=== PATIENT | male | born 1980 | race Caucasian/White ===

== ENCOUNTER → 2019-11-03 15:48 | Outpatient (CLI) | payer MEDICARE, MEDICAID, SELFPAY ==
[2019-10-27 09:35] VITALS: BMI 36.2
--- NOTE | 2019-11-03 15:52 | MRI_ITS ---
STUDY: MRI BRAIN WITH AND WITHOUT CONTRAST REASON FOR EXAM: Male, 39 years old. epilepsy H/O OF SEIZURE 1 TIME 10/15/19 TECHNIQUE: Standardized multiplanar fat and water weighted pulse sequences were obtained. IV 21 cc dotarem was administered for the contrast portion of the examination. COMPARISON: None. FINDINGS: Normal size of the ventricles and extra-axial spaces for the patient''s age. Normal white matter tracts of the supratentorial brain. There is no evidence for recent intracranial ischemia or other cause of cytotoxic edema on diffusion weighted imaging (DWI). Dandy-Walker malformation. Normal bilateral basal ganglia. Normal thalami. There is no extra-axial fluid accumulation. Normal flow voids within the major intracranial circulation suggesting patency by spin echo criteria. Normal venous enhancement. There is no enhancing intra-axial or extra-axial abnormality. There is enlargement of the sella turcica with increased CSF within the sella and flattening of the pituitary gland consistent with an empty sellar syndrome. Normal infundibular stalk, hypothalamus, and optic chiasm. Normal tectal plate and pineal gland. Normal midbrain, beryl and medulla. There is a retrocerebellar CSF fluid collection, without a mass effect upon the vermis, with an open fourth ventricle (widely patent foramen Magendie), consistent with the mildest form of a Dandy-Walker variant, with a alexys-cisterna magna. There is no enlargement of the posterior fossa. Normal basal cisterns. Normal bilateral temporal bones. Normal bilateral internal auditory canals. No demonstrated orbital abnormality, within the constraints of a routine brain study. Normal visualized paranasal sinuses. Normal calvarium and skull base. Normal visualized soft tissue structures. Normal visualized upper cervical spine. IMPRESSION: No acute disease. Dandy-Walker variant. Empty sella. Electronically Signed: Myles Kidd MD at 18:46 EDT , Service support , MRI/Brain W/WO Contrast
== END ==
PROVIDERS: PCP Family Medicine; Referring Provider Psychiatry & Neurology Neurology; Visit Provider Psychiatry & Neurology Neurology
DX: G40.909 Epilepsy, unspecified, not intractable, without status epilepticus (principal)
CPT/HCPCS: 70553; A9575

== ENCOUNTER → 2021-03-25 11:45 | Outpatient (CLI) | payer MEDICARE, MEDICAID, SELFPAY ==
--- NOTE | 2021-03-25 11:50 | ECHOD_ITS ---
Version 2 Reason For Study: congenital heart disease Procedure This was a 2D Doppler, Color Flow transthoracic echocardiogram. The study was technically difficult. Exam performed in department. Left Ventricle Normal LV size. Mild concentric left ventricular hypertrophy. Left ventricular systolic function is normal. The estimated ejection fraction is 60 %. Stage 1 diastolic dysfunction. No regional wall motion abnormalities noted. Right Ventricle Normal RV size. Normal systolic function. Atria Normal left atrium. Flow seen coming into the left atrium from across the atrial septum. This is presumably from the right upper pulmonary vein. Normal right atrium. Mitral Valve Normal mitral valve. Tricuspid Valve Normal tricuspid valve. Aortic Valve Trisinus/trileaflet aortic valve. Pulmonic Valve Normal pulmonic valve. Great Vessels Normal aortic root. The pulmonary artery is normal size. Pericardium/Pleural No pericardial effusion. MMode/2D Measurements & Calculations LVIDd: 2.8 cm IVSd: 1.6 cm Ao root diam: 3.1 cm LVIDs: 1.5 cm LVPWd: 1.2 cm RVDd: 3.3 cm FS: 46.5 % LAV(MOD-bp): 33.3 ml LVAd ap4: 25.0 cm2 SV(MOD-sp4): 44.0 ml LAV(MOD-bp) Indexed: 14.7 ml/m2 LVLd ap4: 7.5 cm LAV(MOD-sp2): 20.6 ml EDV(MOD-sp4): 69.5 ml LAV(MOD-sp4): 51.4 ml EDV(sp4-el): 71.0 ml LVAs ap4: 13.6 cm2 LVLs ap4: 6.3 cm ESV(MOD-sp4): 25.5 ml ESV(sp4-el): 24.9 ml EF(MOD-sp4): 63.3 % EF(sp4-el): 64.9 % SV(sp4-el): 46.1 ml LA A4 area: 17.0 cm2 LA dimension(2D): 3.8 cm RA A4 area: 13.8 cm2 Doppler Measurements & Calculations MV E max mason: 57.1 cm/sec Lat Peak E' Mason: 6.7 cm/sec Med Peak E' Mason: 6.4 cm/sec MV A max mason: 80.1 cm/sec E/E' lat: 8.6 E/E' med: 8.9 MV E/A: 0.71 Ao V2 max: 122.2 cm/sec LV V1 max: 96.9 cm/sec PA V2 max: 124.0 cm/sec Ao max P.0 mmHg LV V1 max P.8 mmHg ECHO/Echo Complete Interpretation Summary Normal LV size. Left ventricular systolic function is normal. The estimated ejection fraction is 60 %. Stage 1 diastolic dysfunction. Mild concentric left ventricular hypertrophy. Flow seen coming into the left atrium from across the atrial septum. This is pr esumably from the right upper pulmonary vein Ordering Physician: Franklin Stallings Referring Physician: Lisa Seo Performed By: Madelyn Bullock RDCS
== END ==
PROVIDERS: PCP Physician Assistant Medical; Referring Provider Internal Medicine Cardiovascular Disease; Visit Provider Internal Medicine Cardiovascular Disease
DX: G47.33 Obstructive sleep apnea (adult) (pediatric) (principal)
CPT/HCPCS: 93306

== ENCOUNTER → 2021-06-20 11:49 | Outpatient (CLI) | payer MEDICARE, MEDICAID, SELFPAY ==
[2021-06-20 12:14] LABS: Bacteria 0 SEEN /hpf (None Seen); Mucous, Urine 0 SEEN /hpf (<or=2+); Red Blood Cells-Urine 0 SEEN /hpf (0-5); Squamous Epithelial Cells - UA 0 SEEN /hpf (0-5)
[2021-06-20 15:04] LABS: Color, Urine Yellow (Yellow); Glucose, Dipstick Normal (Normal); Hematocrit 42.8 % (40-54); Ketone-Dipstick Negative (Negative); Leukocyte Esterase-Dipstick 25 /ul (Negative); Mean Corp Hgb Conc 32.7 g/dL (32-36); Mean Corpuscular Hgb 28.3 pg (27.0-32.0); Mean Corpuscular Volume 86.5 fL (80-94); Mean Platelet Vol. 9.7 fl (6.2-12.0); Nitrite-Dipstick Negative (Negative); Occult Blood-Urine Negative /ul (Negative); Platelet Count 300 K/mm3 (150-450); Protein-Dipstick 15 mg/dl (Negative); RBC Distribution Width CV 13.2 % (11.6-14.6); RBC Distribution Width SD 40.9 fl (35.1-43.9); Red Blood Count 4.95 M/mm3 (4.6-6.2); Specific Gravity, Urine 1.015 (1.002-1.030); Urine Bilirubin Dipstick Negative (Negative); Urine Clarity Clear (Clear); Urine Urobilinogen Normal (Normal); White Blood Count 14.8 K/mm3 (4.4-11.0)
[2021-06-20 15:10] LABS: White Blood Cells 0-5 SEEN /hpf (0-5)
[2021-06-20 15:20] LABS: ALB/GLOB Ratio 0.9 RATIO (0.9-2.4); AST(SGOT) 27 U/L (15-37); Alanine Aminotransfer ALT/SGPT 37 U/L (16-61); Albumin, Serum 3.5 g/dL (3.2-5.0); Alkaline Phosphatase 84 U/L (45-117); Anion Gap 9 (5-15); BUN 12 mg/dL (7-18); BUN/Creat Ratio 13.8 RATIO (10-20); Chloride 108 mmol/L (98-107); Creatinine, Serum 0.87 mg/dL (0.70-1.30); EST Glomerular Filtration Rate 103 mL/min (>60); Est Glom Filt Rate - Afr Amer 125 mL/min (>60); Globulin 3.7 g/dL (2.2-4.2); Glucose 92 mg/dL (74-106); Potassium 4.3 mmol/L (3.5-5.1); Protein, Total 7.2 g/dL (6.4-8.2); Sodium Level 143 mmol/L (136-145)
[2021-06-20 15:35] LABS: Valproic Acid (Depakene) Level 51 ug/mL (50-100)
== END ==
PROVIDERS: PCP Physician Assistant Medical; Referring Provider Nurse Practitioner Family; Visit Provider Nurse Practitioner Family
DX: R56.9 Unspecified convulsions (principal); R46.89 Other symptoms and signs involving appearance and behavior
CPT/HCPCS: 80053; 80164; 81001; 82140; 85027; 87086

== ENCOUNTER → 2021-11-18 | Outpatient (CLI) | payer MEDICARE, MEDICAID, SELFPAY | END | disposition home or self-care (01) | LOC: MTLAB 09:39 | PROVIDERS: PCP Physician Assistant Medical; Referring Provider Psychiatry & Neurology Neurology; Visit Provider Psychiatry & Neurology Neurology | DX: E72.20 Disorder of urea cycle metabolism, unspecified (principal) | CPT/HCPCS: 36415; 82140 ==

== ENCOUNTER → 2022-02-25 | Outpatient (CLI) | payer MEDICARE, MEDICAID, SELFPAY | END | disposition home or self-care (01) | LOC: MTLAB 14:48 | PROVIDERS: PCP Physician Assistant Medical; Referring Provider Psychiatry & Neurology Neurology; Visit Provider Psychiatry & Neurology Neurology | DX: E72.20 Disorder of urea cycle metabolism, unspecified (principal) | CPT/HCPCS: 36415; 82140 ==

== ENCOUNTER → 2022-07-18 | Outpatient (CLI) | payer MEDICARE, MEDICAID, SELFPAY ==
[2022-07-21 12:43] LABS: Vitamin D 1,25-Dihydroxy 53.1 pg/mL (24.8-81.5)
== END | disposition home or self-care (01) ==
LOC: MTLAB 09:19
PROVIDERS: PCP Physician Assistant Medical; Referring Provider Psychiatry & Neurology Neurology; Visit Provider Psychiatry & Neurology Neurology
DX: E72.20 Disorder of urea cycle metabolism, unspecified (principal); Z86.39 Personal history of other endocrine, nutritional and metabolic disease
CPT/HCPCS: 36415; 82140; 82652

== ENCOUNTER → 2022-09-08 | Outpatient (CLI) | payer MEDICARE, MEDICAID, SELFPAY | END | disposition home or self-care (01) | LOC: SL 21:06 | PROVIDERS: PCP Physician Assistant Medical; Referring Provider Nurse Practitioner Acute Care; Visit Provider Nurse Practitioner Acute Care | DX: G47.33 Obstructive sleep apnea (adult) (pediatric) (principal) | CPT/HCPCS: 95811 ==

== ENCOUNTER → 2022-10-03 | Outpatient (CLI) | payer MEDICARE, MEDICAID, SELFPAY | END | disposition home or self-care (01) | LOC: SL 13:08 | PROVIDERS: PCP Physician Assistant Medical; Visit Provider Nurse Practitioner Acute Care | DX: Z00.00 Encounter for general adult medical examination without abnormal findings (principal) ==

== ENCOUNTER → 2022-11-13 | Outpatient (CLI) | payer MEDICARE, MEDICAID, SELFPAY | END | disposition home or self-care (01) | LOC: MTLAB 15:16 | PROVIDERS: PCP Physician Assistant Medical; Referring Provider Psychiatry & Neurology Neurology; Visit Provider Psychiatry & Neurology Neurology | DX: E72.20 Disorder of urea cycle metabolism, unspecified (principal) | CPT/HCPCS: 36415; 82140 ==

== ENCOUNTER → 2023-02-13 | Outpatient (CLI) | payer MEDICARE, MEDICAID, SELFPAY | END | disposition home or self-care (01) | PROVIDERS: PCP Physician Assistant Medical; Referring Provider Psychiatry & Neurology Neurology; Visit Provider Psychiatry & Neurology Neurology | DX: E72.20 Disorder of urea cycle metabolism, unspecified (principal) | CPT/HCPCS: 36415; 82140 ==

== ENCOUNTER → 2023-03-03 | Outpatient (CLI) | payer MEDICARE, MEDICAID, SELFPAY ==
[2023-03-03 10:13] LABS: Absolute Lymphocyte Count 1.96 X10^3/uL (0.83-4.51); Absolute Neutrophil Count 9.1 X10^3/uL (2.0-7.7); Basophil% 0.8 % (0-1); Eosinophil# 0.27 X10^3/uL; Eosinophils% 2.2 % (0-5); Hematocrit 47.9 % (40-54); Hemoglobin 16.1 g/dL (13.0-16.5); Lymphocyte # 1.96 X10^3/ul (0.83-4.51); Mean Corp Hgb Conc 33.6 g/dL (32-36); Mean Corpuscular Hgb 29.1 pg (27.0-32.0); Mean Corpuscular Volume 86.6 fL (80-94); Monocyte# 0.74 X10^3/uL; Monocyte% 6.1 % (0-10); NRBC Flagged by Analyzer 0 % (0-5); Neutrophil # 9.11 X10^3/uL (2.7-7.7); Neutrophil % 74.6 % (47-70); POSITIVE COUNT YES; Platelet Count 204 K/mm3 (150-450); RBC Distribution Width CV 13.1 % (11.6-14.6); RBC Distribution Width SD 40.7 fl (35.1-43.9); Red Blood Count 5.53 M/mm3 (4.6-6.2); White Blood Count 12.2 K/mm3 (4.4-11.0)
[2023-03-03 10:24] LABS: Differential Indicated SCAN CRITERIA MET
[2023-03-03 10:42] LABS: ALB/GLOB Ratio 0.9 RATIO (0.9-2.4); AST(SGOT) 22 U/L (15-37); Alanine Aminotransfer ALT/SGPT 39 U/L (16-61); Albumin, Serum 3.6 g/dL (3.2-5.0); Alkaline Phosphatase 106 U/L (45-117); Anion Gap 7 (5-15); BUN 10 mg/dL (7-18); Chloride 109 mmol/L (98-107); Creatinine, Serum 1.11 mg/dL (0.70-1.30); EST Glomerular Filtration Rate 77 mL/min (>60); Est Glom Filt Rate - Afr Amer 94 mL/min (>60); Glucose 100 mg/dL (74-106); Magnesium 2.3 mg/dL (1.6-2.6); Potassium 3.8 mmol/L (3.5-5.1); Protein, Total 7.6 g/dL (6.4-8.2); Sodium Level 140 mmol/L (136-145); Thyroid Stim Hormone (TSH) 3.75 uIU/mL (0.358-3.74)
[2023-03-03 10:50] LABS: Differential Comment SCANNED
[2023-03-03 14:21] LABS: Erythrocyte Sedimentation Rate 22 mm/hr (0-20)
== END | disposition home or self-care (01) ==
LOC: MTLAB 08:48
PROVIDERS: PCP Physician Assistant Medical; Referring Provider Psychiatry & Neurology Neurology; Visit Provider Psychiatry & Neurology Neurology
DX: E72.20 Disorder of urea cycle metabolism, unspecified (principal); R19.7 Diarrhea, unspecified; R45.1 Restlessness and agitation
CPT/HCPCS: 80053; 82140; 83735; 84443; 85025; 85652; 86140

== ENCOUNTER → 2023-03-12 | Outpatient (CLI) | payer MEDICARE, MEDICAID, SELFPAY ==
--- NOTE | 2023-03-12 13:03 | MRI_ITS ---
STUDY: MRI BRAIN WITHOUT CONTRAST REASON FOR EXAM: Male, 42 years old. Lethargy, recent hearing loss, Dandy-Walker malformation TECHNIQUE: Multiplanar multisequence imaging of the brain was performed without the administration of intravenous contrast. COMPARISON: 11/03/2019 FINDINGS: The ventricles, cisterns, and sulci are within normal limits for patients age. There is no restricted diffusion to suggest acute ischemia or infarction. No succeptibility artifict to suggest intracranial hemorrhage or mineralization. Major intracranial signal voids are preserved. There is no midline shift, mass effect, or extra axial fluid collections are seen. Stable Dandy-Walker variant. The orbits are unremarkable. Stable empty sella. The visualized paranasal sinuses are clear. The mastoid air cells are clear. MRI/Brain without Contrast IMPRESSION: No intracranial hemorrhage, acute infarct, or space occupying lesion seen on this noncontrast MRI of the brain. Stable Dandy-Walker variant. Stable empty sella. Electronically Signed: Jarrdo Peck MD at 19:32 EDT ,
== END | disposition home or self-care (01) ==
LOC: MRI 12:56
PROVIDERS: PCP Physician Assistant Medical; Referring Provider Psychiatry & Neurology Neurology; Visit Provider Psychiatry & Neurology Neurology
DX: R53.83 Other fatigue (principal); Q03.1 Atresia of foramina of Magendie and Luschka; H91.90 Unspecified hearing loss, unspecified ear
CPT/HCPCS: 70551

== ENCOUNTER → 2023-05-18 | Outpatient (CLI) | payer MEDICARE, MEDICAID, SELFPAY ==
[2023-05-18 14:58] LABS: Bacteria 0 SEEN /hpf (None Seen); Mucous, Urine 0 SEEN /hpf (<or=2+)
[2023-05-18 17:44] LABS: Color, Urine Yellow (Yellow); Glucose, Dipstick Normal (Normal); Ketone-Dipstick Negative (Negative); Leukocyte Esterase-Dipstick 25 /ul (Negative); Nitrite-Dipstick Negative (Negative); Occult Blood-Urine Negative /ul (Negative); Protein-Dipstick Negative (Negative); Urine Bilirubin Dipstick Negative (Negative); Urine Clarity Clear (Clear); Urine Urobilinogen Normal (Normal)
[2023-05-18 17:57] LABS: Red Blood Cells-Urine 0-5 SEEN /hpf (0-5); Squamous Epithelial Cells - UA 0-5 SEEN /hpf (0-5); White Blood Cells 0-5 SEEN /hpf (0-5)
== END | disposition home or self-care (01) ==
LOC: MTLAB 14:55
PROVIDERS: PCP Physician Assistant Medical; Referring Provider Psychiatry & Neurology Neurology; Visit Provider Psychiatry & Neurology Neurology
DX: R82.998 Other abnormal findings in urine (principal); F29 Unspecified psychosis not due to a substance or known physiological condition
CPT/HCPCS: 81001; 87077; 87086; 87088; 87186

== ENCOUNTER → 2023-07-21 | Outpatient (CLI) | payer MEDICARE, MEDICAID, SELFPAY ==
--- OUTSIDE RECORDS SUMMARY | 2023-07-21 12:17 | XMS RPT_ITS | CCD ---
Author Name Unknown Address [email or web address] [place] [address] Organization [facility] Care Team Providers Care Baker Apprentice Name Role Phone aNin, Sarah Monazzam Primary Care Provide r Michael Segura Admitting Unavailable Michael Segura Attending Unavailable DORYS VERGARA Attending Unavailable DORYS VERGARA Referring Unavailable TAVALLAEE, SARAH MONAZZAM Primary Care Unav ailable Tavallaee, Sarah Monazzam Primary Care Provide r Roosevelt Seo Unavailable Unavailable Unavailable Unavailable Unavailable Gabib, . Roosevelt Lynch Referring Unav ailable Gabbi, Ms. Roosevelt Lynch Attending Unav ailable Vienna, Ms. Roosevelt Lynch Primary Care Unav ailable Gabbi, Ms. Roosevelt Lynch Primary Care Unav ailable Gabbi, Ms. Roosevelt Lynch Referring Unav ailable Gabbi, Ms. Roosevelt Lynch Attending Unav ailable [place], Ms. Roosevelt Lynch Primary Care Unav ailable Gabbi, Ms. Roosevelt Lynch Attending Unav ailable Gabbi, Ms. Roosevelt Lynch Primary Care Unav ailable FAVIOLA, Dr. CHAND Admitting Unavailable [place], MsDolly Lynch Referring Unav ailable Gabbi, Ms. Roosevelt Lynch Primary Care Unav ailable FAVIOLA, Dr. CHAND Attending Unavailable REY GEE Attending Unavailable ROOSEVELT SEO Referring Unavailable ROOSEVELT SEO Primary Care Unavailable ROOSEVELT SEO Primary Care Unavailable REY GEE Referring Unavailable REY GEE Attending Unavailable Roosevelt Seo PA-C Primary Care Provider Roosevelt Seo PA-C Unavailable Nain KENDRICK, Sarah Gatesazzamelania Primary Care Prov ider ROOSEVELT SEO Attending Unavailable ROOSEVELT SEO Referring Unavailable ROOSEVELT SEO Primary Care Unavailable ROOSEVELT SEO Attending Unavailable ROOSEVELT SEO Primary Care Unavailable NAIN, SARAH MONAZZAM Primary Care Unav ailable TREMAINE SMITH Attending Unavaila TREMAINE Balderas Admitting Unavaila ble TAVALLAEE, SARAH MONAZZAM Primary Care Unav ailable TREMAINE SMITH Referring Unavaila TREMAINE Balderas Attending Unavaila ble TAVALLAEE, SARAH MONAZZAM Primary Care Unav ailable Allergies Allergy Classification Reported Allergen(s) Allergy Type Date of Onset Reaction(s) Facility Amoxicillin / Clavulanate (12 sources) Amoxicillin / Clavulanate; Translations: [Augmentin] Drug Allergy Unknown [facility] Work Phone: Macrolides (antibiotic) (12 sources) Erythromycin; Translations: [erythromycin] Drug Allergy Diarrhea [facility] Work Phone: Unclassified (20 sources) Aspartame (Nutrasweet) POWD Allergy to drug (finding) Diarrhea [facility] Work Phone: (20 sources) Amoxicillin / Clavulanate; Translations: [AMOXICILLIN-POT CLAVULANATE] Drug Allergy 6 Unknown, Swelling [facility] (20 sources) Erythromycin; Translations: [ERYTHROMYCIN] Drug Allergy 6 Diarrhea [facility] (6 sources) Aspartame; Translations: [ASPARTAME] Drug Allergy 0 Diarrhea [facility] Work Phone: (2 sources) Amoxicillin; Translations: [AMOXICILLIN] Drug Allergy 0 Swelling [facility] (2 sources) Clavulanate; Translations: [CLAVULANIC ACID] Drug Allergy 0 Swelling [facility] (2 sources) Codeine; Translations: [CODEINE] Drug Allergy 3 Other (See Comments) [facility] (1 source) ERYTHROMYCIN BASE; Translations: [ERYTHROMYCIN BASE] Propensity to adverse reactions to drug (disorder) 0 [facility] Repository Medications Current Medications Medication Drug Class(es) Dates Sig (Normalized) Sig (Original) ALPRAZolam 0.5 mg oral tablet (3 sources) Benzodiazepine Start: 01-28-2023 take 1 tablet by mouth twice daily as needed for anxiety ALPRAZolam (Xanax) 0.5 mg tablet TAKE 1 TABLET BY MOUTH TWICE DAILY NEEDED FOR AGITATION, RESTLESSNESS OR ANXIETY 0 01/28/2023 Active Completed/Discontinued Medications Medication Drug Class(es) Dates Sig (Normalized) Sig (Original) aspirin 81 mg delayed release oral tablet (20 sources) Platelet Aggregation Inhibitor, Nonsteroidal Anti-inflammatory Drug Start: 12-18-2020 End: 02-26-2022 take 1 tablet by mouth once daily Aspirin Adult Low Dose 81 MG Oral Tablet Delayed Release TAKE 1 TABLET DAILY DIRECTED. Quantity: 0 Refills: 0 Ordered: 18-Dec-2020 DO Start : 18-Dec-2020 End : 26-Feb-2022 Complete Problems Active Problems Problem Classification Problem Date Documented Date Episodic/Chronic Acquired foot deformities (4 sources) Talipes planus; Translations: [Flat foot [pes planus] (acquired), left foot] Onset: 04-23-2023 04-23-2023 Episodic Acquired foot deformities (4 sources) Acquired deformity of ankle AND/OR foot; Translations: [Flat foot [pes planus] (acquired), right foot] Onset: 04-23-2023 04-23-2023 Episodic Anxiety disorders (20 sources) Anxiety state; Translations: [Anxiety state, unspecified] Onset: 08-30-2022 08-30-2022 Chronic Cardiac and circulatory congenital anomalies (20 sources) Congenital heart disease; Translations: [Atrial septal defect] Onset: 07-23-2018 Resolved: 03-24-2023 07-23-2018 Chronic Developmental disorders (20 sources) Intellectual functioning disability ; Translations: [Unspecified intellectual disabilities] Onset: 04-15-2022 03-24-2023 Chronic Diabetes mellitus without complication (20 sources) Impaired glucose tolerance; Translations: [Impaired glucose tolerance test (oral)] Onset: 08-30-2022 03-24-2023 Episodic Diseases of white blood cells (20 sources) Leukocytosis; Translations: [Leukocytosis, unspecified] Onset: 12-04-2015 Resolved: 03-24-2023 08-30-2022 Chronic Disorders of lipid metabolism (20 sources) Hypercholesterolemia; Translations: [Pure hypercholesterolemia] Onset: 08-30-2022 03-24-2023 Chronic Epilepsy; convulsions (3 sources) Epilepsy, not refractory; Translations: [Epilepsy, unspecified, not intractable, without status epilepticus] Onset: 09-17-2022 09-17-2022 Chronic Esophageal disorders (20 sources) Gastroesophageal reflux disease; Translations: [Esophageal reflux] Onset: 08-30-2022 08-30-2022 Chronic Genitourinary symptoms and ill-defined conditions (2 sources) Foul smelling urine; Translations: [Other nonspecific findings on examination of urine] Episodic Mood disorders (14 sources) Mild major depression, single episode; Translations: [Major depressive affective disorder, single episode, mild] Onset: 08-30-2022 03-24-2023 Chronic Nervous system congenital anomalies (4 sources) Congenital atresia of foramen of Magendie; Translations: [Atresia of foramina of Magendie and Luschka] Onset: 03-24-2023 03-24-2023 Chronic Osteoarthritis (20 sources) Osteoarthritis of hip; Translations: [Osteoarthrosis, unspecified whether generalized or localized, pelvic region and thigh] Onset: 08-30-2022 08-30-2022 Chronic Other congenital anomalies (11 sources) Trisomy 11; Translations: [Other specified trisomies and partial trisomies of autosomes] Onset: 07-23-2018 07-23-2018 Chronic Other connective tissue disease (2 sources) Bilateral dysfunction of posterior tibial tendon of feet; Translations: [Posterior tibial tendinitis, right leg] 04-23-2023 Episodic Other connective tissue disease (2 sources) Posterior tibial tendinitis, right leg; Translations: [Posterior tibial tendinitis, right leg] Onset: 04-23-2023 Episodic Other connective tissue disease (2 sources) Posterior tibial tendinitis, left leg; Translations: [Posterior tibial tendinitis, left leg] Onset: 04-23-2023 Episodic Other ear and sense organ disorders (2 sources) Ear pressure sensation; Translations: [Other disorders of ear] Episodic Other ear and sense organ disorders (2 sources) Impacted cerumen; Translations: [Impacted cerumen] Episodic Other liver diseases (20 sources) Steatosis of liver; Translations: [Other chronic nonalcoholic liver disease] Onset: 08-30-2022 08-30-2022 Chronic Other liver diseases (3 sources) Fatty (change of) liver, not elsewhere classified; Translations: [Fatty (change of) liver, not elsewhere classified] Onset: 08-25-2022 Chronic Other nervous system disorders (1 source) Disturbance of attention; Translations: [Spells of decreased attentiveness] Onset: 09-03-2018 09-03-2018 Chronic Other nervous system disorders (20 sources) Poor balance; Translations: [Other symptoms involving nervous and musculoskeletal systems] Onset: 08-30-2022 03-24-2023 Episodic Other nervous system disorders (2 sources) Abnormal gait; Translations: [Unspecified abnormalities of gait and mobility] 03-24-2023 Episodic Other nervous system disorders (2 sources) Unspecified abnormalities of gait and mobility; Translations: [Unspecified abnormalities of gait and mobility] Onset: 03-24-2023 Episodic Other nutritional; endocrine; and metabolic disorders (20 sources) Cholesterol level - finding; Translations: [Lipoprotein deficiencies] Onset: 08-30-2022 08-30-2022 Chronic Other nutritional; endocrine; and metabolic disorders (19 sources) Obesity; Translations: [Obesity, unspecified] Onset: 09-17-2022 03-24-2023 Chronic Other nutritional; endocrine; and metabolic disorders (10 sources) Body mass index 40+ - severely obese; Translations: [Body Mass Index 40.0-44.9, adult] Chronic Other nutritional; endocrine; and metabolic disorders (11 sources) Severe obesity; Translations: [Morbid obesity] 03-24-2023 Chronic Other nutritional; endocrine; and metabolic disorders (2 sources) Morbid (severe) obesity due to excess calories; Translations: [Morbid (severe) obesity due to excess calories (CMS/HCC)] Onset: 03-24-2023 Chronic Other nutritional; endocrine; and metabolic disorders (2 sources) Body mass index (BMI) 37.0-37.9, adult; Translations: [Body mass index (BMI) 37.0-37.9, adult] Onset: 03-24-2023 Chronic Other screening for suspected conditions (not mental disorders or infectious disease) (20 sources) Protein level - finding; Translations: [Other abnormal blood chemistry] Onset: 08-25-2022 Resolved: 09-17-2022 Episodic Other skin disorders (2 sources) Dystrophia unguium; Translations: [Nail dystrophy] 04-23-2023 Episodic Other skin disorders (2 sources) Nail dystrophy; Translations: [Nail dystrophy] Onset: 04-23-2023 Episodic Residual codes; unclassified (12 sources) Obstructive sleep apnea syndrome; Translations: [Obstructive sleep apnea (adult) (pediatric)] Onset: 07-23-2018 Resolved: 03-24-2023 07-23-2018 Chronic Residual codes; unclassified (20 sources) Hypoxia; Translations: [Idiopathic sleep related non-obstructive alveolar hypoventilation] Onset: 08-30-2022 03-24-2023 Chronic Residual codes; unclassified (20 sources) Obstructive sleep apnea of adult; Translations: [Obstructive sleep apnea (adult)(pediatric)] Onset: 08-30-2022 03-24-2023 Chronic Residual codes; unclassified (2 sources) Obstructive sleep apnea (adult) (pediatric); Translations: [Obstructive sleep apnea (adult) (pediatric)] Onset: 08-30-2022 Chronic Residual codes; unclassified (1 source) Past history of procedure; Translations: [History of cardiac monitoring] Episodic Residual codes; unclassified (20 sources) History finding; Translations: [Other specified conditions influencing health status] Episodic Residual codes; unclassified (3 sources) Genetic carrier of other disease; Translations: [Genetic carrier of other disease] Onset: 08-25-2022 Episodic Schizophrenia and other psychotic disorders (20 sources) Paranoid disorder; Translations: [Delusional disorder] Onset: 08-30-2022 03-24-2023 Chronic Past or Other Problems Problem Classification Problem Date Documented Da te Episodic/Chronic Abdominal pain (20 sources) Flank pain; Translations: [Abdominal pain, other specified site] Onset: 08-30-2022 Resolved: 09-17-2022 09-17-2022 Episodic Administrative/social admission (12 sources) Patient encounter status; Translations: [Other specified counseling] Onset: 09-17-2022 Episodic E Codes: Fall (20 sources) Fall; Translations: [Unspecified fall] Onset: 08-30-2022 Resolved: 09-17-2022 09-17-2022 Episodic Malaise and fatigue (18 sources) Fatigue; Translations: [Other malaise and fatigue] Onset: 08-30-2022 08-30-2022 Episodic Mood disorders (1 source) Mood disorders Onset: 09-17-2022 09-17-2022 Other connective tissue disease (20 sources) Pain in right lower limb; Translations: [Pain in limb] Onset: 08-30-2022 Resolved: 09-17-2022 09-17-2022 Episodic Other lower respiratory disease (20 sources) Dyspnea on exertion; Translations: [Shortness of breath] Onset: 07-23-2018 Resolved: 03-24-2023 07-23-2018 Episodic Other upper respiratory infections (20 sources) Posterior rhinorrhea; Translations: [Postnasal drip] Onset: 08-30-2022 Resolved: 09-17-2022 09-17-2022 Episodic Residual codes; unclassified (7 sources) Other general symptoms and signs; Translations: [Disturbance of attention] Onset: 09-03-2018 09-03-2018 Episodic Residual codes; unclassified (20 sources) Edema of lower extremity; Translations: [Edema] Onset: 08-30-2022 08-30-2022 Episodic Spondylosis; intervertebral disc disorders; other back problems (20 sources) Low back pain; Translations: [Lumbago] Onset: 08-30-2022 08-30-2022 Episodic Unclassified (1 source) Onset: 03-24-2023 03-24-2023 Results Test Name Value Interpretation Reference Range Facil ity Vital Signs Date Time Vital Sign Value Performing Clinician Facility 04-23-2023 14:30-0400 Body temperature 98.2 [degF] Tremaine Smith DPM Work Phone: [facility] 04-23-2023 14:30-0400 Diastolic blood pressure 43 mm[Hg] Tremaine SHORTM Work Phone: [facility] 04-23-2023 14:30-0400 Heart rate 83 /min Tremaine Luis DPM Work Phone: [facility] 04-23-2023 14:30-0400 Systolic blood pressure 140 mm[Hg] Tremaine Luis DPM Work Phone: [facility] 03-24-2023 12:39-0400 Body height 172.7 cm Rooseveltcristy Gregoryall PA-C Work Phone: [facility] 03-24-2023 12:39-0400 Body mass index (BMI) [Ratio] 37.71 kg/m2 Roosevelt [place] PA-C Work Phone: [facility] 03-24-2023 12:39-0400 Body weight 112.49 kg Roosevelt Gabbi PA-C Work Phone: [facility] 03-24-2023 12:39-0400 Diastolic blood pressure 80 mm[Hg] Roosevelt [place] PA-C Work Phone: [facility] 03-24-2023 12:39-0400 Heart rate 68 /min Rooseveltcristy Gregoryall PA-C Work Phone: [facility] 03-24-2023 12:39-0400 Systolic blood pressure 132 mm[Hg] Roosevelt [place] PA-C Work Phone: [facility] 02-26-2022 13:08-0400 Body height 170.18 cm Rosoevelt Umañaenhall Work Phone: [facility] Work Phone: 02-26-2022 13:08-0400 Body mass index (BMI) [Ratio] 40.88 kg/m2 Roosevelt Gregoryall Work Phone: [facility] Work Phone: 02-26-2022 13:08-0400 Body surface area Derived from formula 2.26 m2 Roosevelt Gregoryall Work Phone: [facility] Work Phone: 02-26-2022 13:08-0400 Body weight 118.39 kg Roosevelt Seo Work Phone: [facility] Work Phone: 02-26-2022 13:08-0400 Diastolic blood pressure 88 mm[Hg] Rooseveltcristy Umañaenhall Work Phone: [facility] Work Phone: 02-26-2022 13:08-0400 Heart rate 100 /min Roosevelt Seo Work Phone: [facility] Work Phone: 02-26-2022 13:08-0400 Systolic blood pressure 124 mm[Hg] Roosevelt Seo Work Phone: [facility] Work Phone: 08-28-2021 12:48-0500 10 1 Roosevelt Seo Work Phone: [facility] Work Phone: Encounters Encounter Date Encounter Type Care Provider Facility Start: 06-18-2023 End: [facility] Start: 04-23-2023 End: 04-27-2023 ambulatory TREMAINE GIRON [facility] Start: 04-23-2023 End: 04-23-2023 ambulatory SARAH SHENA GILLETTE [facility] Amb[facility] Start: 04-23-2023 End: 04-23-2023 Office outpatient new 30 minutes Tremaine Smith DPM Work Phone: [facility] Procedures Date Procedure Procedure Detail Performing Clinician Start: 04-23-2023 Radex foot complete minimum 3 views Tremaine Smith DPM Work Phone: Start: 03-24-2023 FOLLOW UP IN FAMILY MEDICINE ROOSEVELT SEO Start: 07-31-2021 Lipid 1996 panel - S zhao or Plasma Roosevelt Seo PA-C Work Phone: Start: 10-01-2018 Cardiac mri morpholo gy & function w/o contrast Dorys Vergara Work Phone: Start: 08-04-2018 Echocardiography Sergio galvin Joe Segura Work Phone: Start: 07-23-2018 End: 07-23-2018 12 lead ECG Michael Joe Segura Work Phone: Start: 04-06-2018 End: 04-06-2018 EXTERNAL LAB SCAN Provider Not In Syst em Start: 10-21-2017 End: 10-21-2017 EXTERNAL LAB SCAN Provider Not In Syst em Start: 01-10-2011 End: 01-10-2011 Echocardiography Provider Not In Syst em Start: 01-10-2009 End: 01-10-2009 Echocardiography Provider Not In Syst em Hernia repair Roosevelt cannon Work Phone: Operation on heart Roosevelt Seo Work Phone: Plan of Treatment Date Care Activity Detail Author Start: 11-14-2032 DTaP/Tdap/Td Vaccines (3 - Td or Tdap) DTaP/Tdap/Td Vaccines (3 - Td or Tdap) [facility] Start: 11-14-2032 Tetanus vaccination Tetanus: Every 10yrs [facility] Start: 2031 Zoster Vaccines (1 of 2) Zoster Vaccines (1 of 2) [facility] Start: 10-16-2029 Tetanus vaccination Tetanus: Every 10yrs [facility] Start: 07-31-2026 Lipid panel Lipid Panel [facility] Start: 08-18-2025 Diabetes mellitus screening Diabetes Screening [facility] Start: 09-22-2023 End: 03-24-2024 CBC W Auto Differential panel - Blood CBC and Auto Differential Lab Routine Glucose intolerance (impaired glucose tolerance) Expected: 09/22/2023 (Approximate), Expires: 03/24/2024 [facility] Service Area Work Phone: Immunizations Immunization Date Immunization Notes Care Provider Fa cility 11-14-2022 tetanus toxoid, redu mariam diphtheria toxoid, and acellular pertussis vaccine, adsorbed Roosevelt ALVA-C Work Phone: [facility] Work Phone: 04-17-2022 influenza, injectabl e, quadrivalent, preservative free Roosevelt [place] PA-C Work Phone: [facility] Work Phone: 04-17-2022 influenza virus vaccine, unspecified formulation Roosevelt [place] PA-C Work Phone: [facility] Work Phone: 05-27-2021 Luis COVID-19 Vaccine 0.5 ML Intramuscular Suspension Roosevelt B Gabbi Work Phone: [facility] 05-01-2021 influenza virus vaccine, unspecified formulation Roosevelt Gabbi PA-C Work Phone: [facility] Work Phone: 05-01-2021 Influenza, injectabl e, Madin Cressona Canine Kidney, preservative free, quadrivalent Roosevelt B [place] Work Phone: [facility] Work Phone: 09-14-2020 Luis COVID-19 Vaccine 0.5 ML Intramuscular Suspension Roosevelt B Gabbi Work Phone: [facility] Payers Date Payer Category [place]ayer [place] xxxxxxxxxxxx 2018-Present xxxxxxxxxxxx [id number] 2018 [place] [id number] 2018-Present [id number] 2017 Medicaid [id number] 2017 Medicaid [id number] 2008 Medicare [id number] 2008 Medicare MEDICARE MED[place]AR [place] A & [place] xxxxxxxxxxx 2008-Present [place] xxxxxxxxxxx [id number] 2008 Medicare MEDICARE MED[place]AR [place] & [place] [id number] 2008-Present [place] [id number] 2008 Medicare [id number] 1981 Unknown [id number] 1981 Unknown [id number] 1981 Unknown [id number] 1981 Unknown [id number] 9 1981 Unknown [id number] 9 1981 Unknown [id number] 1981 Unknown [id number] 1981 Unknown [id number] 4 1981 Unknown [id number] 4 1981 Unknown [id number] 1981 Unknown [id number] 1981 Unknown [id number] Unknown Social History Date Type Detail Facility Start: 07-23-2018 End: 04-23-2023 Tobacco smoking status NHIS Never smoker [facility] Start: 1980 Sex Assigned At [facility] file [facility] Start: 10-01-2018 End: 04-23-2023 Tobacco use and exposure Never used [facility] Start: 10-01-2018 End: 04-23-2023 Alcohol intake Current non-drinker of alcohol (finding) [facility] Start: 03-24-2023 End: 04-23-2023 Denies alcohol consumption Denies alcohol consumption [facility] Work Phone: Start: 03-24-2023 Alcohol intake Lifetime non-d declan (finding) [facility] Work Phone: Start: 03-24-2023 End: 04-23-2023 Tobacco use panel [facility] Work Phone: Functional Status Date Assessment Result Facility 08-28-2021 PHQ-9 [id number] Moderate (10-14) [facility] Work Phone: Clinical Notes 04-16-2019 to 04-23-2023 Tremaine Smith DPM - 04/23/2023 3:17 PM Tremaine Li DPM - 04/23/2023 3:17 PM Lisa Seo PA-C - 03/24/2023 12:40 PM EDT Note Date & Type Note Facility 04-23-2023 History of Present illness Narrative Patient Name: Dragan Randolph MR #: [id number] : 1980 Gender: male. Date of Consultation: 04/23/2023. Author: MOMO Weir Physicians: Sarah Gillette MD (Family); No ref. provider found (Referring) History of Present Illness: Dragan Randolph is a 42 y.o. male who presents with excessive wear on the left lateral heel of his shoe. Patient is cared for by his mother because of his disabilities. Patient is having no complaints of pain but would like to have his toenails trimmed today. Patient has trisomy 11. Assessment and Plan: 1. 1. Pes planovalgus, acquired, left Foot Orthotics Custom Bilateral XR Foot Left 3+ Views (Standard) 2. Acquired pes planovalgus, right Foot [employer]otics Custom Bilateral 3. Posterior tibial tendon dysfunction (PTTD) of both lower extremities Foot [facility]otics Custom Bilateral 4. Dystrophic nail Plan: Patient was seen and evaluated. I discussed the findings with the patient. Patient was given opportunity to ask questions. Patient elects to have the following treatment as follows: Lower Extremity: Integumentary: Toenails 1 through 5 are long and dystrophic. Skin is warm dry and supple bilateral feet. Musculoskeletal: Decreased medial longitudinal arch bilateral feet. With a resting calcaneal heel valgus position. Patient appears to be excessively externally rotated on the left foot with gait. Patient has pretty much a shuffling gait as opposed to heel toe gait. Neurological: Intact bilateral feet Vascular: DP PT pulse are palpable bilateral feet. * No LDAs found * BP (!) 140/43 (BP Location: Right arm, Patient Position: Sitting, BP Cuff Size: X-large Adult) Pulse 83 Temp 98.2 F (36.8 C) (Temporal) Allergy Information: I have reviewed the patient's allergies. Aspartame, Augmentin [amoxicillin-pot clavulanate], and Erythromycin Home Medications: Current Outpatient Medications Medication Sig Dispense Refill ALPRAZolam (XANAX) 0.5 MG tablet Take 1 (one) tablet (0.5 mg total) by mouth nightly as needed for sleep . atorvastatin (LIPITOR) 10 MG tablet Take 1 (one) tablet (10 mg total) by mouth daily . carBAMazepine (TEGretol) 100 mg chewable tablet Chew and Swallow 1 (one) tablet (100 mg total) 2 (two) times a day . levOCARNitine (CARNITOR) 330 mg tablet Take 1 (one) tablet (330 mg total) by mouth 2 (two) times a day . multivitamin with minerals tablet Take 1 (one) tablet by mouth daily . tamsulosin (FLOMAX) 0.4 mg capsule Take 1 (one) capsule (0.4 mg total) by mouth daily . aspirin 81 mg chewable tablet Chew and Swallow 1 (one) tablet (81 mg total) daily . benztropine (COGENTIN) 0.5 MG tablet Take 1 (one) tablet (0.5 mg total) by mouth at bedtime . buPROPion (WELLBUTRIN XL) 150 MG 24 hr tablet Take 1 (one) tablet (150 mg total) by mouth daily . haloperidol (HALDOL) 0.5 MG tablet 0.5 MG PO QAM, 2 MG PO QPM . lactobacillus combination no.8 (ADULT PROBIOTIC ORAL) Take 300 mg by mouth daily . LACTOSE ORAL Take by mouth . omeprazole (PRILOSEC) 20 MG capsule Take 1 (one) capsule (20 mg total) by mouth daily . oxygen Inhale 2 L/min as needed . paliperidone (INVEGA) 6 MG 24 hr tablet Take 1 (one) tablet (6 mg total) by mouth every morning . No current facility-administered medications for this visit. Review of Systems: The following system(s) were reviewed and pertinent findings noted: Pertinent positives and negatives as mentioned above, otherwise full review of systems is negative unless mentioned below: Patient currently denies Nausea/Vomiting/Fever/Chills/Shortn ess of Breath/Chest Pain. Medical History: Past Medical History: Diagnosis Date Anxiety Congenital heart disease Delusions (HCC) Depression Fatigue Fatty liver GERD (gastroesophageal reflux disease) Glucose intolerance (impaired glucose tolerance) Hyperlipidemia Leg edema Leukocytosis Low back pain Nocturnal hypoxia Nonintractable epilepsy with status epilepticus, unspecified epilepsy type (HCC) OA (osteoarthritis) of hip BEBO (obstructive sleep apnea) Paranoia (HCC) . 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 Social History: Social History Socioeconomic History Marital status: Single Tobacco Use Smoking status: Never Smokeless tobacco: Never Substance and Sexual Activity Alcohol use: No Drug use: No Family History: Family History Problem Relation Age of Onset Cancer Mother colo-rectal cancer survivor Cancer Father Stroke Brother Heart disease Maternal Grandmother Heart disease Maternal Grandfather Heart disease Paternal Grandmother from ruptured AAA Cancer Paternal Grandmother Electronically signed by the above physician 04/23/23 documented in this encounter [facility] 04-23-2023 History of Present illness Narrative Patient Name: Dragan Randolph MR #: [id number] : 1980 Gender: male. Date of Consultation: 04/23/2023. Author: MOMO Weir Physicians: Sarah Gillette MD (Family); No ref. provider found (Referring) History of Present Illness: Dragan Randolph is a 42 y.o. male who presents with excessive wear on the left lateral heel of his shoe. Patient is cared for by his mother because of his disabilities. Patient is having no complaints of pain but would like to have his toenails trimmed today. Patient has trisomy 11. Assessment and Plan: 1. 1. Pes planovalgus, acquired, left Foot Orthotics Custom Bilateral XR Foot Left 3+ Views (Standard) 2. Acquired pes planovalgus, right Foot Orthotics Custom Bilateral 3. Posterior tibial tendon dysfunction (PTTD) of both lower extremities Foot Orthotics Custom Bilateral 4. Dystrophic nail Plan: Patient was seen and evaluated. I discussed the findings with the patient. Patient was given opportunity to ask questions. Patient elects to have the following treatment as follows: Debrided toe nails 1-5 anabell feet Rx for orthotics RTC 9 weeks Lower Extremity: Integumentary: Toenails 1 through 5 are long and dystrophic. Skin is warm dry and supple bilateral feet. Musculoskeletal: Decreased medial longitudinal arch bilateral feet. With a resting calcaneal heel valgus position. Patient appears to be excessively externally rotated on the left foot with gait. Patient has pretty much a shuffling gait as opposed to heel toe gait. Neurological: Intact bilateral feet Vascular: DP PT pulse are palpable bilateral feet. * No LDAs found * BP (!) 140/43 (BP Location: Right arm, Patient Position: Sitting, BP Cuff Size: X-large Adult) Pulse 83 Temp 98.2 F (36.8 C) (Temporal) Allergy Information: I have reviewed the patient's allergies. Aspartame, Augmentin [amoxicillin-pot clavulanate], and Erythromycin Home Medications: Current Outpatient Medications Medication Sig Dispense Refill ALPRAZolam (XANAX) 0.5 MG tablet Take 1 (one) tablet (0.5 mg total) by mouth nightly as needed for sleep . atorvastatin (LIPITOR) 10 MG tablet Take 1 (one) tablet (10 mg total) by mouth daily . carBAMazepine (TEGretol) 100 mg chewable tablet Chew and Swallow 1 (one) tablet (100 mg total) 2 (two) times a day . levOCARNitine (CARNITOR) 330 mg tablet Take 1 (one) tablet (330 mg total) by mouth 2 (two) times a day . multivitamin with minerals tablet Take 1 (one) tablet by mouth daily . tamsulosin (FLOMAX) 0.4 mg capsule Take 1 (one) capsule (0.4 mg total) by mouth daily . aspirin 81 mg chewable tablet Chew and Swallow 1 (one) tablet (81 mg total) daily . benztropine (COGENTIN) 0.5 MG tablet Take 1 (one) tablet (0.5 mg total) by mouth at bedtime . buPROPion (WELLBUTRIN XL) 150 MG 24 hr tablet Take 1 (one) tablet (150 mg total) by mouth daily . haloperidol (HALDOL) 0.5 MG tablet 0.5 MG PO QAM, 2 MG PO QPM . lactobacillus combination no.8 (ADULT PROBIOTIC ORAL) Take 300 mg by mouth daily . LACTOSE ORAL Take by mouth . omeprazole (PRILOSEC) 20 MG capsule Take 1 (one) capsule (20 mg total) by mouth daily . oxygen Inhale 2 L/min as needed . paliperidone (INVEGA) 6 MG 24 hr tablet Take 1 (one) tablet (6 mg total) by mouth every morning . No current facility-administered medications for this visit. Review of Systems: The following system(s) were reviewed and pertinent findings noted: Pertinent positives and negatives as mentioned above, otherwise full review of systems is negative unless mentioned below: Patient currently denies Nausea/Vomiting/Fever/Chills/Shortn ess of Breath/Chest Pain. Medical History: Past Medical History: Diagnosis Date Anxiety Congenital heart disease Delusions (HCC) Depression Fatigue Fatty liver GERD (gastroesophageal reflux disease) Glucose intolerance (impaired glucose tolerance) Hyperlipidemia Leg edema Leukocytosis Low back pain Nocturnal hypoxia Nonintractable epilepsy with status epilepticus, unspecified epilepsy type (HCC) OA (osteoarthritis) of hip BEBO (obstructive sleep apnea) Paranoia (HCC) . 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 Social History: Social History Socioeconomic History Marital status: Single Tobacco Use Smoking status: Never Smokeless tobacco: Never Substance and Sexual Activity Alcohol use: No Drug use: No Family History: Family History Problem Relation Age of Onset Cancer Mother colo-rectal cancer survivor Cancer Father Stroke Brother Heart disease Maternal Grandmother Heart disease Maternal Grandfather Heart disease Paternal Grandmother from ruptured AAA Cancer Paternal Grandmother Electronically signed by the above physician 04/23/23 documented in this encounter [facility] 03-24-2023 History of Present illness Narrative Subjective Patient ID: Dragan Randolph is a 42 y.o. male who presents for Follow-up (6 MONTH FOLLOW UP WITH LABS AND MED CHECK /MOTHER STATES HE HAS BEEN TALKING TO HIMSELF MORE THAN USUAL IN THE LAST MONTH. 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 -PT -denies hearing from them -OT- - denies hearing from them -Speech therapy - states had an initial analysis but no follow up was done Questions need for Podiatry Patient Active Problem List Diagnosis Anxiety state Congenital heart disease, adult Delusions (CMS/HCC) Depression, major, single episode, mild (CMS/HCC) Elevated ferritin level Fatigue Fatty liver GERD (gastroesophageal reflux disease) Glucose intolerance (impaired glucose tolerance) Hypercholesterolemia Intellectual functioning disability Leg edema Leukocytosis Low back pain Low HDL (under 40) Nocturnal hypoxia OA (osteoarthritis) of hip Obstructive sleep apnea, adult Paranoia (psychosis) (CMS/HCC) Phonological disorder Poor balance SOB (shortness of breath) on exertion Obesity, morbid (CMS/[facility]) Nonintractable epilepsy without status epilepticus, unspecified epilepsy type (CMS/[facility]) Review of Systems Constitutional: Positive for fatigue. Negative for chills and fever. HENT: Negative for congestion, rhinorrhea, sinus pain, sore throat and tinnitus. Eyes: Negative for discharge, redness and visual disturbance. Respiratory: Negative for cough, chest tightness, shortness of breath and wheezing. Cardiovascular: Negative for chest pain, palpitations and leg swelling. Gastrointestinal: Negative for abdominal pain, constipation, diarrhea, nausea and vomiting. Endocrine: Negative for cold intolerance and heat intolerance. Genitourinary: Negative for flank pain, frequency and urgency. Musculoskeletal: Positive for gait problem. Negative for back pain and neck pain. Skin: Negative for rash and wound. Neurological: Negative for dizziness, tremors, syncope, numbness and headaches. Hematological: Does not bruise/bleed easily. Psychiatric/Behavioral: Positive for confusion and sleep disturbance. Negative for suicidal ideas. 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 Partial trisomy 11. Remote NAIMA around 2008 unremarkable s/p ASD repair. Last Assessment & Plan: Echo July 2018 reviewed. JEFFERSON (dyspnea on exertion) 07/23/2018 Reported BEBO, hypoxia with exertion. Leukocytosis 12/04/2015 BEBO on CPAP 07/23/2018 Other specified health status No pertinent past medical history Past Surgical History: Procedure Laterality Date OTHER SURGICAL HISTORY 03/29/2019 Hernia repair OTHER SURGICAL HISTORY 12/06/2019 Heart surgery Family History Problem Relation Name Age of Onset Other (CARDIAC ARRHYTHMIA) Other GP Social History Tobacco Use Smoking status: Never Smokeless tobacco: Never Vaping Use Vaping Use: Never used Substance Use Topics Alcohol use: Never Drug use: Never Allergies Allergen Reactions Amoxicillin-Pot Clavulanate Unknown Aspartame Diarrhea NUTRASWEET POWDER INTOLERANCE Erythromycin Diarrhea Current Outpatient Medications Medication Sig Dispense Refill ALPRAZolam (Xanax) 0.5 mg tablet TAKE 1 TABLET BY MOUTH TWICE DAILY NEEDED FOR AGITATION, RESTLESSNESS OR ANXIETY atorvastatin (Lipitor) 10 mg tablet Take 1 tablet (10 mg) by mouth once daily at bedtime. 90 tablet 1 benztropine (Cogentin) 0.5 mg tablet Take 1 tablet (0.5 mg) by mouth. levOCARNitine (Carnitor) 330 mg tablet Take 1 tablet (330 mg) by mouth once daily. Take with food. multivitamin tablet Take 1 tablet by mouth once daily. tamsulosin (Flomax) 0.4 mg 24 hr capsule Take 1 capsule (0.4 mg) by mouth. aspirin 81 mg EC tablet Take 1 tablet (81 mg) by mouth once daily. haloperidol (Haldol) 2 mg tablet Take 1 tablet (2 mg) by mouth once daily. AT NIGHT lactobacillus acidophilus 500 million cell capsule Take 1 capsule by mouth once daily. lactulose 20 gram/30 mL oral solution Take 15 mL (10 g) by mouth twice a day. multivitamin with minerals (xhzgslwiwesl-amyb-uwcae acid) tablet Take 1 tablet by mouth once daily. omeprazole (PriLOSEC) [address] capsule Take 1 capsule (20 mg) by mouth once daily in the morning. Take before meals. 90 capsule 1 paliperidone (Invega) 6 mg 24 hr tablet Take 1 tablet (6 mg) by mouth once daily in the morning. Take before meals. No current facility-administered medications for this visit. Objective BP 132/80 Pulse 68 Ht 1.727 m (5' 8 ) Wt 112 kg (248 lb) BMI 37.71 kg/m Physical Exam Vitals reviewed. Constitutional: Appearance: Normal appearance. He is obese. HENT: Head: Normocephalic. Right Ear: External ear normal. Left Ear: External ear normal. Nose: Nose normal. No congestion or rhinorrhea. Mouth/Throat: Mouth: Mucous membranes are moist. Eyes: Extraocular Movements: Extraocular movements intact. Conjunctiva/sclera: Conjunctivae normal. Pupils: Pupils are equal, round, and reactive to light. Cardiovascular: Rate and Rhythm: Normal rate and regular rhythm. Pulses: Normal pulses. Pulmonary: Effort: Pulmonary effort is normal. Breath sounds: Normal breath sounds. Abdominal: General: Bowel sounds are normal. Palpations: Abdomen is soft. Tenderness: There is no abdominal tenderness. There is no right CVA tenderness or left CVA tenderness. Musculoskeletal: General: No tenderness. Normal range of motion. Cervical back: Normal range of motion and neck supple. No tenderness. Skin: General: Skin is warm and dry. Neurological: General: No focal deficit present. Mental Status: He is alert and oriented to person, place, and time. Psychiatric: Mood and Affect: Mood normal. Behavior: Behavior normal. Testing MRI brain feb 2023 with neuro - stable Labs Feb 2023 CMP - WNL CBC - WBC 12.2* -rest approp CRP - min elevated ESR 22* TSH - 3.75 Ammonia 42* Impression MDM 1) COMPLEXITY: MORE THAN 1 STABLE CHRONIC CONDITION ADDRESSED 2)DATA: TESTS INTERPRETED AND OR ORDERED, TOOK INDEPENDENT HISTORY OR RECORDS REVIEWED 3)RISK: MODERATE RISK DUE TO NATURE OF MEDICAL CONDITIONS/COMORBIDITY OR MEDICATIONS ORDERED OR SURGICAL OR PROCEDURE REFERRAL, . Reviewed labs and Testing on file Patient to follow diet low in cholesterol, fat, and sodium. Patient is advised to increase Exercise. Patient is recommended to lose weight. Reviewed Meds and discussed common side effects Continue as directed Will start referral to pod for foot management and see if this helps with the gait Consider re-referral for PT/OT and speech Cont with specialists Patient is strongly advised to be compliant with recommendations. Return to Clinic sooner if needed. Patient denies further questions/concerns at this time Assessment/Plan Problem List Items Addressed This Visit Delusions (CMS/HCC) Depression, major, single episode, mild (CMS/HCC) Elevated ferritin level Relevant Orders Iron and TIBC Ferritin Glucose intolerance (impaired glucose tolerance) Relevant Orders CBC and Auto Differential Comprehensive Metabolic Panel Hemoglobin A1C Lipid Panel Thyroid Stimulating Hormone Thyroxine, Free Iron and TIBC Ferritin Magnesium Vitamin B12 Hypercholesterolemia - Primary Relevant Orders Lipid Panel Thyroid Stimulating Hormone Thyroxine, Free Intellectual functioning disability Nocturnal hypoxia Obstructive sleep apnea, adult Poor balance Class 2 obesity due to excess calories with body mass index (BMI) of 37.0 to 37.9 in adult Atresia of foramina of Magendie and Luschka (CMS/HCC) Other Visit Diagnoses Abnormal gait Relevant Orders Referral to Podiatry FU in 6 (aug or september) with medicare wellness and labs at [place] - fax and give copy to family - Pod referral documented in this encounter [facility] Work Phone: 02-26-2023 Note CARDIAC CATHETERIZAT ION CONFERENCE DISCUSSION Date of Discussion: 02/26/2023 Name: Dragan Randolph : 1980 Age: 42 y.o. Reinstatement Clerk: Amaris Discussed by: Amaris/Edwar Discussion: Trisomy 11. S/p surgical repair of atrial septal defect and partial anomalous pulmonary venous return at age 19 at [facility] by Dr. Livan Dale S/p autologous pericardial patch baffle of SVC to the left atrium through the an ASD, division of superior vena cava and oversewing of the cardiac and an anastomosis of the upper end of the SVC to the right atrial appendage Also has hyperlipidemia, intellectual disability as well as seizure disorder, on multiple seizure medications. Depression and schizophrenia. Difficulty visualizing pulmonary veins on echo so CT performed. Normal RV pressures on echo Cardiac Ct 02/25/23: no SVC or pulmonary vein obstruction, patent but small baffle Recommendations/Plan: If symptomatic could consider stent. Otherwise monitor. Summarized By: Indy Sher DO [facility] 08-25-2022 Note Clinic Note: Education Assessment: Learning BarriersCognitive TaughtParent Primary Language of PatientEnglish Primary Language of Chiang LearnerEnglish Name of Chiang Learner & RelationshipMOTHER WITH PT Clinic Visit: Topic(s): Clinic VisitFollow-up plan MethodVerbal, Teach-Back, Handout EvaluationTeaches back Nursing Note: Nursing NotePT SET UP FOR 1 YEAR. LABS AT THE HOSP THE WEEK PRIOR TO HIS APPT. SET UP FOR RTC WITH MD ON 08/24/23 AT 3PM Electronic Signatures: Sandra Mcclure (SYLVIA) (Signed 25-Aug-2022 15:15) Authored: Education Assessment, Clinic Visit, Nursing Note Last Updated: 25-Aug-2022 15:15 by Sandra Mcclure) [facility] 07-16-2021 Chief complaint Narrative - Reported An interactive audio and video telecommunication system which permits real time communications between the patient (at the originating site) and provider (at the distant site) was utilized to provide this telehealth service.Verbal consent was requested and obtained from DRAGAN WEBSTERISH on this date, 07/16/2021 10:20 AM , for a telehealth visit.FACE TO FACE FOR WALK IN TUB. NEEDING TO BE SET UP FOR IN HOME PT; C/O MOOD SWINGS-DISCUSS MEDS [facility] Work Phone: 11-27-2020 History of Present illness Narrative Patient presents today for....1 Fall 1 week agolanded face first in the [facility] cont to suffer with R lower leg pain and his gait/walk is differentpain is located mid part of the lower legtried tylenol and aleve and ice but little relief2 Med check-GERD - stable on PPIglucose intolerance - stable and monitored with labs- hypercholesterolemia - monitored with labs- leukocytosis - stable and monitored with labs- elevated ferritin /low transferrin - mildly stable over the last 6 +mo- Delusions - following with psych- BEBO - not using CPAP3 chronic cerumen impaction and concerns [facility] Work Phone: 11-27-2020 History of Present illness Narrative Patient presents today for....1 [facility] to [facility] with R lower leg pain and his gait/walk is differentpain is located mid part of the lower legtried tylenol and aleve and ice but little relief2 Med check-GERD - stable on PPIglucose intolerance - stable and monitored with labs- hypercholesterolemia - monitored with labs- leukocytosis - stable and monitored with labs- elevated ferritin /low transferrin - mildly stable over the last 6 +mo- Delusions - following with psych- BEBO - not using CPAP3 chronic cerumen impaction and concerns [facility] Work Phone: 04-16-2019 History of Present illness Narrative The mother of Dragan (Sathish) reported that his intelligibility has decreased over the last few years. Sathish reported that he feels like something is in his mouth, but there is nothing in it. There is speculation that his new medications have contributed to his decreased intelligibility. Sathish's mother reported his average day consists of long naps and sitting in his recliner. He is eligible for adult daycare, but refuses to go. She is his primary communication partner. Sathish reported that he has not received any speech therapy.Treatment recommendations: treatment indicated (see goals below) [facility] Work Phone: documented in this encounter [facility] Work Phone: Evaluation note* Diagnosis Abnormal gait- Primary Abnormality of [facility] Diagnosis Pes planovalgus, acquired, left- Primary Acquired pes planovalgus, right Posterior tibial tendon dysfunction (PTTD) of both lower extremities Dystrophic nail Other specified disease of nail [facility] Diagnosis Pes planovalgus, acquired, left- Primary Acquired pes planovalgus, right Posterior tibial tendon dysfunction (PTTD) of both lower extremities Dystrophic nail Other specified disease of nail [facility]* Past Medical, Surgical and Family History: reviewed and updated in chart. * Medications and Supplements: Medications and supplements, including calcium and vitamins reviewed and updated in chart. * No, the patient is not using opioids. * Patient Self Assessment of Health Status: good. * Tobacco use: Non-User * Alcohol use: Non-User * Illicit drug use: Non-User * Current diet: unhealthy diet. * Exercise Frequency: infrequently. * Depression/Suicide Screening: . * During the past 2 weeks, the patient has not felt down, depressed or hopeless. * During the past 2 weeks, the patient has not felt little interest or pleasure in doing things. * Hearing Impairment: none. * Cognitive Impairment: No cognitive impairment observed. * Bathing: needs assistance. * Dressing: needs assistance. * Walking: needs assistance. * Managing Finances: needs assistance. * Shopping: needs assistance. * Managing Medications: needs assistance. * Housework / Basic Home Maintenance: needs assistance. * Falls Risk Screening:. DRAGAN has not fallen in the last 6 months. * Home safety risk factors: none. * L EAR PRESSURE SENSATION WHICH AFFECTS THE HEARING C 3 DAYS . MEDICARE WELLNESS EXAM PT IS HERE WITH MOTHER .PT IS UNDER CARE OF PSYCHIATRIST FOR PARANOIA AND PSYCHOSIS WHICH HAVE BEEN STABLE. . -[facility] Work Phone: History of Present illness NarrativeWeakness noted with hip strengthening. SBA with all ambulation and standing ther ex. LOB with retrogait. Quick fatigue with all ther ex with requests from pt. to take breaks. [facility] Work Phone: History of Present illness NarrativeWeakness noted with hip and quad strengthening. CGA with all LE strengthening. V/c to keep pt. motivated to continue therapy. Quick fatigue with hip strengthening,. [facility]: History of Present illness NarrativeOnly 30 min tx this visit per pt. request. Weakness noted with hip and quad strengthening. SBA withside stepping in parallel bars. Quick fatigue with STS.[facility] Work Phone: History of Present illness NarrativeWeakness noted with all LE strengthening. LOB with sidestepping and NBOS on Airex. Gait belt donnedwith proprioception. V/c to keep pt. motivated from EQUIPMENT SERVICE ENGINEER and mother. Poor eccentric control with STStransfer.[facility] Work Phone: History of Present illness Narrative* Patient ID confirmed using Name and . * Patient wearing mask throughout session today d/t COVID-19 precautions. * Patient with good tolerance to treatment, no c/o increased pain/discomfort in clinic. Patient c/o fatigue throughout session and requires max cuing and encouragement for participation throughout session. [facility] Work Phone: History of Present illness NarrativeContinued weakness with all LE strengthening. Pt. continues to require motivation to complete Tx and to push through minor fatigue. SBA with side stepping and retro gait. Fair quad eccentric control with STS transfers.[facility] [address] [place] Work Phone: History of Present illness Narrative* Patient presents today for.... * 1 to review labs * 2 follow up fall in NOVEMBER * landed face first in the yard * He cont to suffer with R lower leg pain and his gait/walk is different * pain is located mid part of the lower leg * tried tylenol and aleve and ice but little relief * xray tibia and fib * xray hip * xray L spine * US abd d/t elevated ferritin and fatty liver * US ext * 2 Med check * -GERD - stable on PPI * glucose intolerance - stable and monitored with labs * - hypercholesterolemia - monitored with labs * - leukocytosis - stable and monitored with labs * - elevated ferritin /low transferrin - mildly stable over the last 6 +mo * - Delusions - following with psych * - BEBO - not using CPAP - dr mcwilliams - dr fraser in [place] * 3 chronic cerumen impaction and concerns [facility] Work Phone: History of Present illness Narrative* Patient presents today with mom (she is prim historian) for.... * 1 to review labs * unfort lipid and thyroid testing was not completed * 2 face to face for walk in tub * fall in NOVEMBER * landed face first in the yard * In gen he is higher risk for fall given his medical condition/state of health * He suffers from gen pain in his legs and back and arms and weakness in additional to poor balance * he has poor strength and ROM and is unable to physically sit in a tub and get back out himself and when he does step over the tub side he nearly falls as he cannot get his leg up and seems to drag it * 3 Need for PT * given his pain, weakness and poor balance issues, mom would like him to have PT * 4 Med check * -GERD - stable on PPI * glucose intolerance - stable and monitored with labs * - hypercholesterolemia - monitored with labs * - leukocytosis - stable and monitored with labs * - elevated ferritin /low transferrin - mildly stable over the last 6 +mo * - Delusions - following with psych * - BEBO - not using CPAP - dr mcwilliams - dr fraser in [facility] Internal Medicine Work Phone: History of Present illness Narrative* Per patient's mom they are wanting to install a walk-in tub and have Medicaid assist with the cost.She states that Dragan drags his L leg while attempting to transfer into a standard tub. He also has trouble transferring from supine back to [facility] once in the tub. In order for Medicaid to assist with the cost they need documentation of Jose limitations in tub transfers. The patient's mom feels that ongoing clinic therapy may help Dragan's general conditioning and also establish his transferring ability. The patient will be classified a low fall risk due to DX (previous fall HX) and tub transfer difficulty. He does not C/O dizziness. Dragan scored a 14 on the PHQ-9 today-his mom states that she is his atm mechanic and feels there is no imminent threat of Dragan hurting himself. He is presently receiving counseling from a physician. Physical findings include global spinal kyphosis (per momDaniel is sedentary and sits a lot). There is also B hip weakness/tightness and L>R leg length. Continue with core work, B hip ROM/flexibility/PRE and tub transfer/gait training. The patients stdgtrunk shift reduced with R 3/[address] * Clinical Presentation: Stable and/or uncomplicated characteristics. * Level of Complexity: low * Problem List: activity limitations, ADLs/IADLs/self care skills, balance, decreased functional level, decreased knowledge of HEP, gait/locomotion, participation restrictions, range of motion/joint mobility, strength and transfers. [facility] Work Phone: History of Present illness NarrativePatient was identified by name and date. Tactile and verbal cues required for exercise instruction. Noted quick fatigue during bridges and SLR. Mother present for instruction and HEP sheet bands given and reviewed with her. [facility] Work Phone: History of Present illness NarrativePatient identified by name and date of . Patient was able to progress with standing exercises this date. He required decreased redirecting to preform exercises this date verse last session and was able to stay on task without prompting. He presented with tension in B hips. [facility] Work Phone: History of Present illness NarrativePatient confirmed name and date of . CGA and gait belt with ball toss exercises. Added cone taps this date with patient using 2 UE assist, no LOB and no cone knock overs. Patient required cues for good posture and form throughout session. Discuss with patient and his Mom ways to implement HEP. [facility] Work Phone: History of Present illness NarrativePatient identity confirmed today with name/. the patient continues to use his heel lift; see goals; good strength improvements and pain reduction; there is similar difficulty with tub transfers- ongoing active stdg hip flexion ROM (structural??) limitation will most likely continue to contributeto this difficulty; the patient plans to pursue a possible home modification consult to further pursue improved tub transfer efficiency/safety; ongoing HEP was reviewed and added to today-the patientwas encouraged that present improvements will not remain if HEP is not done consistently. [facility] Work Phone: History of Present illness Narrative* The patient is being seen for the subsequent annual wellness visit. * Past Medical, Surgical and Family History: reviewed and updated in chart. * Medications and Supplements: Review of all medications by a prescribing practitioner or clinical pharmacist (such as prescriptions, OTCs, herbal therapies and supplements) documented in the medical record. * No, the patient is not using opioids. * Patient Self Assessment of Health Status: fair. * Tobacco use: Non-User * Alcohol use: Non-User * Illicit drug use: Non-User * Current diet: unhealthy diet, does not consume adequate fluids and does consume caffeine. * Exercise Frequency: infrequently. * Depression/Suicide Screening: Patient has a current diagnosis of depression . * During the past 2 weeks, the patient has not felt down, depressed or hopeless. * During the past 2 weeks, the patient felt little interest or pleasure in doing things. * Hearing Impairment: none. * Cognitive Impairment: No cognitive impairment observed. * Bathing: needs assistance. * Dressing: needs assistance. * Walking: performs independently. * Toileting: performs independently. * Feeding: needs assistance. * Personal Hygiene: needs assistance. * Managing Finances: dependent. * Shopping: needs assistance. * Managing Medications: dependent. * Housework / Basic Home Maintenance: needs assistance. * Handling Transportation: dependent. * Falls Risk Screening:Dolly PICHARDO has not fallen in the last 6 months. * Home safety risk factors: none. * Advance directives:. Advance Care Planning discussed and documented in the medical record, patient did not wish or was not able to name a surrogate decision maker or provide an advance care plan. * Patient presents today with mom (she is prim historian) for.... * 1 Subsequent Medicare wellness * 2 to review labs * 3 Need for PT * given his pain, weakness and poor balance issues, mom would like him to have PT * this was to be done to help with safety for a tub however therapist is not sure this will be accomplished given his current physical health. He did go through PT but it was unsuccessful in getting tohis goals * pt is now looking into home health * for assistance for his hygiene- guerline bath , shower care * 4 Med check * -GERD - stable on PPI * glucose intolerance - stable and monitored with labs * - hypercholesterolemia - monitored with labs * - leukocytosis - stable and monitored with labs * - elevated ferritin /low transferrin -following with heme - dr zhao * - Delusions - following with psych * - BEBO - not using CPAP - dr oj fraser in [place] * 5 Form for medical visit * mom is caregiver * - annual physical * - form for medical visit * 6 Preventative Testing * PSA - suggest age 50 * colonoscopy - suggest age 45-50 * PHQ9 Depression screen - 10 moderate. I question if its more mild as the reason he flipped into themoderate states is b/c of fatigue and sleep issues which he has uncontrolled BEBO. he does have known mental health concerns and is followed and managed with meds by dr gil sheehan [facility] Work Phone: History of Present illness Narrative* Patient presents today with mom (she is prim historian) for.... * 1 to review labs * 2 Need for PT, OT, speech therapy - pt mother states they are looking into home care for this * 3 Med check * -GERD - stable on PPI * glucose intolerance - stable and monitored with labs * - hypercholesterolemia - monitored with labs * - leukocytosis - stable and monitored with labs * - elevated ferritin /low transferrin -following with heme - dr zhao * - Delusions - following with psych and neuro and states meds have been adjusted and starting new med which they are hopeful will offer some relief without the severe side effects * - BEBO - not using CPAP - dr oj fraser in [place] * 4 Form for medical visit but not actual form - mother just needs documentation that she is the caregiver * 5 Preventative Testing * PSA - suggest age 50 * colonoscopy - suggest age 45-50 * PHQ9 Depression screen - 10 moderate. I question if its more mild as the reason he flipped into themoderate states is b/c of fatigue and sleep issues which he has uncontrolled BEBO. he does have known mental health concerns and is followed and managed with meds by dr gil sheehan [facility] Work Phone: Reason for referral (narrative)* Consultation (Routine) - Authorized Specialty Diagnoses / Procedures Referred By Contac t Referred To Contact Podiatry Diagnoses Abnormal gait Procedures [place] OFFICE/OUTPATIENT NEW HIGH MDM 60-74 MINUTES Roosevelt Seo PA-C [address] [place] [address] Referral ID Status Reason Start Date Expiration Date Visits Requested Visits Authorized [id number] Authorized Specialty Services Required 03/24/2023 09/20/2023 1 1 [facility] Work Phone: Reason for Referral Status Reason Specialty Diagnoses / Procedures Referred By Contact Referred To Contact Authorized Cardiology Diagnoses Congenital heart disease in adult JEFFERSON (dyspnea on exertion) Procedures Echocardiogram complete Michael Segura MD [address] [address] Status Reason Specialty Diagnoses / Procedures Referre d By Contact Referred To Contact Closed Cardiology Diagnoses History of cardiac monitoring Sarah Gillette MD [address] [place] [address] Status Reason Specialty Diagnoses / Procedures Referred By Contact Referred To Contact Pending Review Radiology Diagnoses ASD (atrial septal defect) Procedures MR Cardiac Morphology With And Without Contrast with Velocity Flow Dorys Vergara MD [address] [place] [address] Status Reason Specialty Diagnoses / Procedures Referred By Contact Referred To Contact Authorized Service Not Available Internally Diagnoses ASD (atrial septal defect) Michael Segura MD [address] [address] Fox Garcia MD [address] [address] Status Reason Specialty Diagnoses / Procedures Referre d By Contact Referred To Contact Closed Cardiology Diagnoses Congenital heart disease in adult JEFFERSON (dyspnea on exertion) Procedures Echocardiogram complete Michael Segura MD [address] [address] Specialty Diagnoses / Procedures Referred By Lios t Referred To Contact Podiatry Diagnoses Abnormal gait Roosevelt Seo PA-C [address] [place] [address] Dakota Gross Jr., DPMelania [address] [place] [address] Referral ID Status Reason Start Date Expiration Date V isits Requested Visits Authorized [id number] Authorized 03/25/2023 03/24/2024 1 1 Instructions * Patient Instructions - Khadijah Real RN - 07/23/2018 8:28 AM EST How to Contact your Care Team: Provider: Dr. Michael Segura MD State'S Attorney: Khadijah Real RN in this encounter* Patient Instructions* Angie Reyes RN - 09/27/2018 1:26 PM EDT Provider: Dr. Dorys Vergara Nurse: LU Pulido, RN in this encounter History of Present Illness * Michael Segura MD - 07/23/2018 8:12 AM EST Formatting of this note may be different from the original. [facility] [address] [facility] [address] [facility] [address] Subjective: Dragan Randolph is a 38 y.o. male seen in the office today for Chief Complaint Patient presents with Establish Care referred to office by Dr Conklin due to low oxygen. Per pts mother, pt has congenital heart disease-hole in heart. Wasn't diagnosed until age 19. [address] Gonzalez 4-5 years ago. 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 Status post repair of ASD. Trisomy 11 partial Jefferson (Dyspnea On Exertion) Reported BEBO, hypoxia with exertion. Bebo On Cpap Assessment & Plan: Congenital heart disease in adult No chest pain. Patient status post oxygen saturation testings documented nocturnal heart block see me in the past with normal 6-minute walk test he uses oxygen with nasal cannula evening at nights but not cannot keep the cannula on overnight. Mother reports O2 sat level is low at 66% 1 late afternoon patient not wearing oxygen. Patient is delirious and confused with low oxygen saturations. Mother asking about portable O2. JEFFERSON with exertion and decreased O2 sat at times. Limited exercise capacity over the last year or 2.Seen today with his mother. Has been through sleep lab evaluation reportedly 6-minute walk was unremarkable except for his O2 sat dropping. Over seems to have low O2 sat associated with weakness spells. No evidence of any arrhythmia or palpitations. EKG completely unremarkable. O2 sat 96% May need further pulmonary evaluation. BEBO eval. Trouble wearing the CPAP. Check echo. Check Chest xray. Review lab Thomson see back. Evaluate for estimate pulmonary hypertension. Histories: Past Medical History: Diagnosis Date Congenital heart disease GERD (gastroesophageal reflux disease) Hyperlipidemia BEBO (obstructive sleep apnea) Past Surgical History: Procedure Laterality Date HERNIA REPAIR TEMPLATE OPEN HEART due to Congenital heart disease- hole in heart History reviewed. No pertinent family history. Social History Substance Use Topics Smoking status: Never Smoker Smokeless tobacco: Never Used Alcohol use No Patient's Medications New Prescriptions No medications on file Previous Medications ATORVASTATIN (LIPITOR) 10 MG TABLET Take 10 mg by mouth daily . BENZTROPINE (COGENTIN) 0.5 MG TABLET Take 0.5 mg by mouth at bedtime . BUPROPION (WELLBUTRIN XL) 150 MG 24 HR TABLET Take 150 mg by mouth daily . HALOPERIDOL (HALDOL) 0.5 MG TABLET 0.5 MG PO QAM, 2 MG PO QPM . LACTOBACILLUS COMBINATION NO.8 (ADULT PROBIOTIC ORAL) Take 300 mg by mouth 2 (two) times a day . MULTIVITAMIN WITH MINERALS TABLET Take 1 tablet by mouth daily . OMEPRAZOLE (PRILOSEC) 40 MG CAPSULE Take 40 mg by mouth daily . OXYGEN Inhale 2 L/min as needed . TAMSULOSIN (FLOMAX) 0.4 MG CAPSULE Take 0.4 mg by mouth daily . Modified Medications No medications on file Discontinued Medications No medications on file Allergies Allergen Reactions Augmentin [Amoxicillin-Pot Clavulanate] Erythromycin Review of Systems Constitution: Positive for malaise/fatigue. Negative for diaphoresis, weight gain and weight loss. HENT: Negative for hearing loss, nosebleeds and tinnitus. Eyes: Negative for blurred vision and visual disturbance. Cardiovascular: Positive for dyspnea on exertion. Negative for chest pain, claudication, cyanosis, irregular heartbeat, leg swelling, near-syncope, orthopnea, palpitations, paroxysmal nocturnal dyspnea and syncope. Respiratory: Negative for hemoptysis, shortness of breath and snoring. Endocrine: Negative for cold intolerance and heat intolerance. Hematologic/Lymphatic: Does not bruise/bleed easily. Skin: Negative for flushing, poor wound healing and rash. Musculoskeletal: Negative for back pain, muscle weakness and myalgias. Gastrointestinal: Negative for abdominal pain, change in bowel habit, melena, nausea and vomiting. Genitourinary: Negative for decreased libido and hematuria. Neurological: Negative for loss of balance and numbness. Psychiatric/Behavioral: Negative for memory loss. The patient is not nervous/anxious. Objective: Physical Exam Constitutional: He appears well-nourished. HENT: Mouth/Throat: Oropharynx is clear and moist. Eyes: Conjunctivae and lids are normal. Neck: No JVD present. Carotid bruit is not present. Cardiovascular: Normal rate, regular rhythm and normal pulses. No murmur heard. Increased second heart sound. Decreased split. Pulmonary/Chest: Effort normal and breath sounds normal. Abdominal: Soft. Bowel sounds are normal. He exhibits no mass. There is no hepatosplenomegaly. There is no tenderness. Musculoskeletal: Normal range of motion. Neurological: He is alert. Gait normal. One word answers nods his head. Mother does most of the talking. Skin: Skin is warm and intact. No rash noted. Psychiatric: Cooperative. Pleasant. Vitals reviewed. Vitals: Vitals: 07/23/18 0757 BP: (!) 131/90 Pulse: 88 SpO2: 96% Weight: 10.6 kg (23 lb 4.8 oz) Height: 5' 7.5 Body mass index is 3.6 kg/m . Orders Placed This Encounter Procedures XR Chest AP/PA and LAT Standing Status: Future Standing Expiration Date: 07/23/2019 Scheduling Instructions: OK to scheduled at [facility] and all ambulatory sites [facility] - Age limit: 8 and older Simon or ROBERT - If a patient or an office calls to schedule an x-ray: Please place this on the schedule for the date they are asking for They are generally trying to schedule around an appointment with a physician located in the building Do not tell them this is a walk in test it does not need to be Scheduled Fax script to [phone] Order Specific Question: Reason for Exam: Answer: short of breath, Hx of ASD repair. ECG 12 Lead Echocardiogram complete Standing Status: Future Standing Expiration Date: 07/24/2019 Order Specific Question: Reason for exam Answer: Dyspnea EXTERNAL LAB SCAN EXTERNAL LAB SCAN Follow Up Ordered: Return in about 6 weeks (around 09/03/2018). Michael Segura MD in this encounter* Michael Segura MD - 09/03/2018 9:58 AM EST [facility] [address] [facility] [address] [facility] [address] Subjective: Dragan Randolph is a 38 y.o. male seen in the office today for Chief Complaint Patient presents with Follow-up 6 week/ review echo Recent echocardiogram with [id number] shunt noted. History of ASD repair. We will get details of [facility] atrial septal defect repair in 1999. History of transesophageal echo in 2008, [facility]. No significant atrial shunting noted at that time. Mother describes spells which have become more frequent in the last couple of months of marked fatigue, stomach hurts, head hurts. Patient wants to lie down, middle of the day, late in the day. No real staring spells, but has total body weakness. No evidence of any tonic-clonic movements. 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 Does follow with Neurology, Dr. Isreal Hermosillo in [place], [place]. Overview of Problems Addressed: Problem Spells of Decreased Attentiveness Severe tired, Stomach hurts, cant see, Cant hear, Head hurts Wants to lay down. 4 hrs. Possible partial seizures. Hx of Psychiatry consult. Haldol and Wellbutrin. 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 Remote NAIMA around 2008 unremarkable s/p ASD repair. Assessment & Plan: PLAN Setting up consultation with Dr. Vergara to review his history of congenital heart disease and repair. Review recent echocardiogram. We will get records of op report from [facility]. Recent 6-minute walk, [facility], showed no evidence of any significant hypoxia. The patient's mother states that home monitor shows O2 sats in the 80s during these spells as described above.Has been diagnosed with sleep apnea in the past, but has difficult compliance with the CPAP mask. Seeing ENT in the near future. No change in medications. Question of possible partial seizures, has followup with Neurology. Question if needs another NAIMA, following up with Dr. Vergara for adult congenital heart evaluation. Spells of decreased attentiveness Sees Neurology, Dr. Brenner. In October 2018. Congenital heart disease in adult Echo July 2018 reviewed. Histories: Past Medical History: Diagnosis Date Congenital heart disease GERD (gastroesophageal reflux disease) Hyperlipidemia BEBO (obstructive sleep apnea) Past Surgical History: Procedure Laterality Date HERNIA REPAIR TEMPLATE OPEN HEART due to Congenital heart disease- hole in heart Family History Problem Relation Age of Onset Cancer Mother colo-rectal cancer survivor Cancer Father Stroke Brother Heart disease Maternal Grandmother Heart disease Maternal Grandfather Heart disease Paternal Grandmother from ruptured AAA Cancer Paternal Grandmother Social History Tobacco Use Smoking status: Never Smoker Smokeless tobacco: Never Used Substance Use Topics Alcohol use: No Drug use: No Medication List Accurate as of 09/03/18 11:59 PM. If you have any questions, ask your nurse or doctor. CONTINUE taking these medications ADULT PROBIOTIC ORAL atorvastatin 10 MG tablet Commonly known as: LIPITOR benztropine 0.5 MG tablet Commonly known as: COGENTIN buPROPion 150 MG 24 hr tablet Commonly known as: WELLBUTRIN XL haloperidol 0.5 MG tablet Commonly known as: HALDOL multivitamin with minerals tablet omeprazole 40 MG capsule Commonly known as: PRILOSEC oxygen tamsulosin 0.4 mg capsule Commonly known as: FLOMAX Allergies Allergen Reactions Augmentin [Amoxicillin-Pot Clavulanate] Erythromycin Review of Systems Constitution: Positive for malaise/fatigue. Negative for diaphoresis, weight gain and weight loss. HENT: Negative for hearing loss, nosebleeds and tinnitus. Eyes: Negative for blurred vision and visual disturbance. Cardiovascular: Negative for chest pain, claudication, cyanosis, dyspnea on exertion, irregular heartbeat, leg swelling, near-syncope, orthopnea, palpitations, paroxysmal nocturnal dyspnea and syncope. Respiratory: Negative for hemoptysis, shortness of breath and snoring. Endocrine: Negative for cold intolerance and heat intolerance. Hematologic/Lymphatic: Does not bruise/bleed easily. Skin: Negative for flushing, poor wound healing and rash. Musculoskeletal: Negative for back pain, muscle weakness and myalgias. Gastrointestinal: Negative for abdominal pain, change in bowel habit, melena, nausea and vomiting. Genitourinary: Negative for decreased libido and hematuria. Neurological: Negative for loss of balance and numbness. Psychiatric/Behavioral: Negative for memory loss. The patient is not nervous/anxious. Objective: Physical Exam Constitutional: He appears well-nourished. HENT: Mouth/Throat: Oropharynx is clear and moist. Eyes: Conjunctivae and lids are normal. Neck: No JVD present. Carotid bruit is not present. Cardiovascular: Normal rate, regular rhythm and normal pulses. No murmur heard. Increased second heart sound. Decreased split. Pulmonary/Chest: Effort normal and breath sounds normal. Abdominal: Soft. Bowel sounds are normal. He exhibits no mass. There is no hepatosplenomegaly. There is no tenderness. Musculoskeletal: Normal range of motion. Neurological: He is alert. Gait normal. One word answers nods his head. Mother does most of the talking. Skin: Skin is warm and intact. No rash noted. Psychiatric: Cooperative. Pleasant. Vitals reviewed. Vitals: Vitals: 09/03/18 0910 BP: (!) 128/90 BP Location: Right arm Patient Position: Sitting BP Cuff Size: Adult Pulse: 94 SpO2: 96% Weight: 103 kg (227 lb 1.6 oz) Height: 5' 8 Body mass index is 34.53 kg/m . No orders of the defined types were placed in this encounter. Follow Up Ordered: Return in about 6 months (around 03/03/2019). Michael Segura MD * Alia Pineda RN - 09/03/2018 9:15 AM EST Review of Systems Constitution: Positive for malaise/fatigue. Negative for diaphoresis, weight gain and weight loss. HENT: Negative for hearing loss, nosebleeds and tinnitus. Eyes: Negative for blurred vision and visual disturbance. Cardiovascular: Negative for chest pain, claudication, cyanosis, dyspnea on exertion, irregular heartbeat, leg swelling, near-syncope, orthopnea, palpitations, paroxysmal nocturnal dyspnea and syncope. Respiratory: Negative for hemoptysis, shortness of breath and snoring. Endocrine: Negative for cold intolerance and heat intolerance. Hematologic/Lymphatic: Does not bruise/bleed easily. Skin: Negative for flushing, poor wound healing and rash. Musculoskeletal: Negative for back pain, muscle weakness and myalgias. Gastrointestinal: Negative for abdominal pain, change in bowel habit, melena, nausea and vomiting. Genitourinary: Negative for decreased libido and hematuria. Neurological: Negative for loss of balance and numbness. Psychiatric/Behavioral: Negative for memory loss. The patient is not nervous/anxious. in this encounter* Dorys Vergara MD - 09/27/2018 12:45 PM EDT OFFICE CONSULTATION NOTE [facility] [place] [address] ([address]) [facility] [address] [facility] [id number] Physicians: Sarah Gillette MD (Family); Michael Segura, Juni (Referring) Subjective: I had the pleasure of seeing Mr. Dragan Randolph at the [facility] [place] office on 09/27/2018. Mr. Randolph is a 38 y.o. male with trisomy 11, an ASD and partial anomalous pulmonary venous return status post complete repair at age 19 by Livan Dale at the [facility] who presents today for further cardiac evaluation. His congenital heart disease was not diagnosed until the age of 19 at the urging of his caregivers to have an echocardiogram performed due to tripoding and shortness of breath. It was then that he was found to have an ASD with partial anomalouspulmonary venous return. Since then, he has been followed sporadically first by Dr. Serrano and most r ecently by Dr. Segura. The details of his surgical repair are not currently available for review, but most likely, he had baffling of his partial anomalous pulmonary venous return across his atrial septal defect. Initially following repair, he had improvement in his symptoms, but more recently, hehas had increasing fatigue and shortness of breath. He does have severe obstructive sleep apnea andhas been unable to tolerate CPAP. He is mom and caregivers are in the process of working with him and sleep medicine to improve his compliance with his sleep apnea machine. They are currently concerned because he is acting quite similar to how he was prior to his ASD repair. He is extremely fatigued and will sleep majority of the day if allowed. They do not noticed significant shortness of breath, but he will not participate in many activities due to profound fatigue. He has had 6-minute walk test which have shown that he is able to maintain his oxygen levels with activity without supplemental O2. He denies palpitations or chest pain. He has had no syncope. A recent echocardiogram interpreted by myself was concerning for shunting at the atrial level versus flow from his pulmonary venous repair. Past Medical History: Past Medical History: Diagnosis Date Congenital heart disease GERD (gastroesophageal reflux disease) Hyperlipidemia BEBO (obstructive sleep apnea) Past Surgical History: Procedure Laterality Date HERNIA REPAIR TEMPLATE OPEN HEART due to Congenital heart disease- hole in heart Family History Problem Relation Age of Onset Cancer Mother colo-rectal cancer survivor Cancer Father Stroke Brother Heart disease Maternal Grandmother Heart disease Maternal Grandfather Heart disease Paternal Grandmother from ruptured AAA Cancer Paternal Grandmother Social History Tobacco Use Smoking status: Never Smoker Smokeless tobacco: Never Used Substance Use Topics Alcohol use: No Drug use: No Outpatient Medications as of 09/27/2018 Medication Sig atorvastatin (LIPITOR) 10 MG tablet Take 10 mg by mouth daily . benztropine (COGENTIN) 0.5 MG tablet Take 0.5 mg by mouth at bedtime . buPROPion (WELLBUTRIN XL) 150 MG 24 hr tablet Take 150 mg by mouth daily . haloperidol (HALDOL) 0.5 MG tablet 0.5 MG PO QAM, 2 MG PO QPM . lactobacillus combination no.8 (ADULT PROBIOTIC ORAL) Take 300 mg by mouth daily . multivitamin with minerals tablet Take 1 tablet by mouth daily . omeprazole (PRILOSEC) 40 MG capsule Take 40 mg by mouth daily . oxygen Inhale 2 L/min as needed . tamsulosin (FLOMAX) 0.4 mg capsule Take 0.4 mg by mouth daily . Allergies Allergen Reactions Augmentin [Amoxicillin-Pot Clavulanate] Erythromycin Review of Systems Constitution: Positive for malaise/fatigue. Negative for chills, decreased appetite, diaphoresis, weight gain and weight loss. HENT: Negative for nosebleeds. Cardiovascular: See HPI Respiratory: Positive for sleep disturbances due to breathing and snoring. Negative for cough and shortness of breath. Endocrine: Negative for cold intolerance and heat intolerance. Hematologic/Lymphatic: Does not bruise/bleed easily. Gastrointestinal: Negative for heartburn, hematemesis, hematochezia, melena, nausea and vomiting. Neurological: Positive for difficulty with concentration, excessive daytime sleepiness, headaches and seizures. Negative for focal weakness, light- headedness and paresthesias. Psychiatric/Behavioral: Positive for hallucinations and hypervigilance. The patient is nervous/anxious. All other systems reviewed and are negative. Objective: Vitals: BP (!) 133/92 (BP Location: Left arm, Patient Position: Sitting, BP Cuff Size: Adult) Pulse 93 Ht 5' 8 Wt 103 kg (227 lb) SpO2 98% BMI 34.52 kg/m Physical Exam Constitutional: He is oriented to person, place, and time. He appears well- developed and well-nourished. No distress. HENT: Head: Normocephalic and atraumatic. Nose: Nose normal. Mouth/Throat: Oropharynx is clear and moist. Eyes: Conjunctivae and EOM are normal. No scleral icterus. Neck: Neck supple. No JVD present. Carotid bruit is not present. No tracheal deviation present. No thyromegaly present. Cardiovascular: Normal rate, regular rhythm, S1 normal, S2 normal and intact distal pulses. No extrasystoles are present. PMI is not displaced. Exam reveals no gallop, no distant heart sounds, no friction rub and no midsystolic click. No murmur heard. Pulses: Carotid pulses are 2+ on the right side, and 2+ on the left side. Radial pulses are 2+ on the right side, and 2+ on the left side. Posterior tibial pulses are 2+ on the right side, and 2+ on the left side. Well-healed median sternotomy scar. Pulmonary/Chest: Effort normal and breath sounds normal. He has no wheezes. He has no rales. Abdominal: Soft. There is no tenderness. No hepatomegaly. Musculoskeletal: He exhibits no edema. Lymphadenopathy: He has no cervical adenopathy. Neurological: He is alert and oriented to person, place, and time. No cranial nerve deficit. Skin: Skin is warm and dry. No rash noted. No erythema. Psychiatric: He has a normal mood and affect. Vitals reviewed. 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 There is a [id number] shunt noted by color Doppler at the atrial level which appears to be at the site of the previous secundum atrial septal defect repair although cannot exclude atypical pulmonary venous flow from previous PAPVR repair as details of surgical repair are not available for review. Pulmonary veins not well visualized on this study. --Normal left ventricular size and systoilc function, estimated LVEF 55-60%. --Slightly dilated right ventricle with normal systolic function. --Mild left atrial enlargement. --No hemodynamically significant valvular disease. Estimated RVSP 19 mmHg. ECG (07/2018): Normal sinus rhythm with normal [place] and QT intervals. There is no evidence of ischemia, infarction, hypertrophy or pre-excitation noted. Assessment & Plan: Mr. 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 He currently complains of profound fatigue and is unable to participate in daily activities due to his symptoms. His blood pressure is at the upper limits of normal today. He clinically appearseuvolemic. His pulse oximetry is normal on room air. I reviewed his echocardiogram from July andis likely that the flow across the atrial septum is related to his previous pulmonary venous repairas opposed to dehiscence of his atrial septal patch. His right ventricular size is reasonable for somebody who underwent a late repair. With regards to his symptoms of fatigue, this is most likely due to his sleep apnea and I encouraged Mr. Randolph and his family to continue to pursue efforts at compliance with CPAP. To better evaluate his intracardiac anatomy status post repair, would recommend that Dragan undergo a cardiac MRI which will better detail his pulmonary venous anatomy. Dragan does believe he would be able to tolerate a cardiac MRI, so will arrange for this to be performed at [facility]. If his MRI shows normal pulmonary venous return status post repair with a normal Qp/Qs, then would attribute his symptoms mainly to his sleep apnea and would not pursue further invasive cardiac testing at this time. If there does appear to be continued anomalous pulmonary venous return and/or a significant residual intracardiac shunt, then further invasive testing may be indicated. I did stress to Mr. Randolph and his family that despite his surgical repair, he should periodicallyfollow up with a merchandise flow team leader specializing in adult congenital heart disease given his late repair and potential long-term complications including, but not limited to atrial arrhythmias, or other surg ical complications. In the interim, Mr. Randolph remains self limited in his activities. He should engage in daily aerobic activity as tolerated for long- term cardiovascular health and weight loss. I did not start any medications today as part of his elevated blood pressure may have been related to anxiety. Since there does not appear to be definitive evidence of residual intracardiac shunting, Mr. Randolph does not require SBE prophylaxis prior to dental, GI, or procedures based on the most recent ACC/AHA guidelines. I will tentatively follow-up with Mr. Randolph in 1 year; however, if there is anything concerning on his upcoming cardiovascular testing, will arrange for appropriate follow-up. 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 JEFFERSON (dyspnea on exertion) Other dyspnea and respiratory abnormality BEBO on CPAP Diagnosis Spells of decreased attentiveness Congenital heart disease in adult Diagnosis Congenital heart disease in adult- Primary ASD (atrial septal defect) Ostium secundum type atrial septal defect JEFFERSON (dyspnea on exertion) Other dyspnea and respiratory abnormality Diagnosis ASD (atrial septal defect) Ostium secundum type atrial septal defect Diagnosis Congenital heart disease in adult JEFFERSON (dyspnea on exertion) Other dyspnea and respiratory abnormality Summary Purpose Family History No Family History Records FoundUnknown Family Member Name Dates Details Family history of cardiac ar rhythmia: Grandparent(V17.49, Z82.49) Status:Active No pertinent family history: Mother, Father(V49.89, Z78.9) Status:Active Unknown Family Member Name Dates Details Family history of cardiac ar rhythmia: Grandparent(V17.49, Z82.49) Status:Active No pertinent family history: Mother, Father(V49.89, Z78.9) Status:Active Unknown Family Member Name Dates Details Family history of cardiac ar rhythmia: Grandparent(V17.49, Z82.49) Status:Active No pertinent family history: Mother, Father(V49.89, Z78.9) Status:Active Unknown Family Member Name Dates Details Family history of cardiac ar rhythmia: Grandparent(V17.49, Z82.49) Status:Active No pertinent family history: Mother, Father(V49.89, Z78.9) Status:Active Unknown Family Member Name Dates Details Family history of cardiac ar rhythmia: Grandparent(V17.49, Z82.49) Status:Active No pertinent family history: Mother, Father(V49.89, Z78.9) Status:Active Unknown Family Member Name Dates Details Family history of cardiac ar rhythmia: Grandparent(V17.49, Z82.49) Status:Active No pertinent family history: Mother, Father(V49.89, Z78.9) Status:Active Unknown Family Member Name Dates Details Family history of cardiac ar rhythmia: Grandparent(V17.49, Z82.49) Status:Active No pertinent family history: Mother, Father(V49.89, Z78.9) Status:Active Unknown Family Member Name Dates Details Family history of cardiac ar rhythmia: Grandparent(V17.49, Z82.49) Status:Active No pertinent family history: Mother, Father(V49.89, Z78.9) Status:Active Unknown Family Member Name Dates Details Family history of cardiac ar rhythmia: Grandparent(V17.49, Z82.49) Status:Active No pertinent family history: Mother, Father(V49.89, Z78.9) Status:Active Unknown Family Member Name Dates Details Family history of cardiac ar rhythmia: Grandparent(V17.49, Z82.49) Status:Active No pertinent family history: Mother, Father(V49.89, Z78.9) Status:Active Unknown Family Member Name Dates Details Family history of cardiac ar rhythmia: Grandparent(V17.49, Z82.49) Status:Active No pertinent family history: Mother, Father(V49.89, Z78.9) Status:Active Unknown Family Member Name Dates Details Family history of cardiac ar rhythmia: Grandparent(V17.49, Z82.49) Status:Active No pertinent family history: Mother, Father(V49.89, Z78.9) Status:Active Unknown Family Member Name Dates Details Family history of cardiac ar rhythmia: Grandparent(V17.49, Z82.49) Status:Active No pertinent family history: Mother, Father(V49.89, Z78.9) Status:Active Unknown Family Member Name Dates Details Family history of cardiac ar rhythmia: Grandparent(V17.49, Z82.49) Status:Active No pertinent family history: Mother, Father(V49.89, Z78.9) Status:Active Unknown Family Member Name Dates Details No pertinent family history: Mother, Father(V49.89, Z78.9) Status:Active Family history of cardiac ar rhythmia: Grandparent(V17.49, Z82.49) Status:Active Unknown Family Member Name Dates Details Family history of cardiac ar rhythmia: Grandparent(V17.49, Z82.49) Status:Active No pertinent family history: Mother, Father(V49.89, Z78.9) Status:Active Unknown Family Member Name Dates Details No pertinent family history: Mother, Father(V49.89, Z78.9) Status:Active Family history of cardiac ar rhythmia: Grandparent(V17.49, Z82.49) Status:Active Unknown Family Member Name Dates Details Family history of cardiac ar rhythmia: Grandparent(V17.49, Z82.49) Status:Active No pertinent family history: Mother, Father(V49.89, Z78.9) Status:Active Unknown Family Member Name Dates Details Family history of cardiac ar rhythmia: Grandparent(V17.49, Z82.49) Status:Active No pertinent family history: Mother, Father(V49.89, Z78.9) Status:Active Unknown Family Member Name Dates Details Family history of cardiac ar rhythmia: Grandparent(V17.49, Z82.49) Status:Active No pertinent family history: Mother, Father(V49.89, Z78.9) Status:Active Unknown Family Member Name Dates Details Family history of cardiac ar rhythmia: Grandparent(V17.49, Z82.49) Status:Active No pertinent family history: Mother, Father(V49.89, Z78.9) Status:Active Unknown Family Member Name Dates Details Family history of cardiac ar rhythmia: Grandparent(V17.49, Z82.49) Status:Active No pertinent family history: Mother, Father(V49.89, Z78.9) Status:Active Unknown Family Member Name Dates Details Family history of cardiac ar rhythmia: Grandparent(V17.49, Z82.49) Status:Active No pertinent family history: Mother, Father(V49.89, Z78.9) Status:Active Unknown Family Member Name Dates Details Family history of cardiac ar rhythmia: Grandparent(V17.49, Z82.49) Status:Active No pertinent family history: Mother, Father(V49.89, Z78.9) Status:Active Unknown Family Member Name Dates Details No pertinent family history: Mother, Father(V49.89, Z78.9) Status:Active Family history of cardiac ar rhythmia: Grandparent(V17.49, Z82.49) Status:Active Unknown Family Member Name Dates Details Family history of cardiac ar rhythmia: Grandparent(V17.49, Z82.49) Status:Active No pertinent family history: Mother, Father(V49.89, Z78.9) Status:Active Unknown Family Member Name Dates Details Family history of cardiac ar rhythmia: Grandparent(V17.49, Z82.49) Status:Active No pertinent family history: Mother, Father(V49.89, Z78.9) Status:Active Advance Directives No Advanced Directives Records FoundDocuments on File Type Date 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 FELL FACE FIRST IN THE YARD. MOTHER STATES PT FELL HARD. HAVING PAIN INTHE RIGHT LOWER LEG, WALKING DIFFERENT. HAS BEEN TAKING TYLENOL AND ALEVE AND USING ICE. MOTHER WOULD LIKE PT TO HAVE EARS CHECKED.PT C/O FALL LAST THURSDAY. FELL FACE FIRST IN THE YARD. MOTHER STATES PT FELL HARD. HAVING PAIN INTHE RIGHT LOWER LEG, WALKING DIFFERENT. HAS BEEN TAKING TYLENOL AND ALEVE AND USING ICE. MOTHER WOULD LIKE PT TO HAVE EARS CHECKED. MEDICARE WELLNESS VISIT + LEFT EAR PLUG. UNABLE TO HEAR OUT OF EAR SINCE THURSDAY - DENIES PAIN OR DISCOMFORT. USING OTC DEBROX + OLD PRESCRIPTION OF AMOXIL THAT WAS PREVIOUSLY PRESCRIBED.6 MONTH F/U WITH LABS. PATIENT WAS SEEN LAST MONTH S/P FALL - F/U VENOUS DOPPLER, US RIGHT LOWER EXTREMITY, AND US ABDOMEN. C/O EXTREME FATIGUE - SLEEPING 12+ HOURS PER DAY AND BAREY ABLE TO FUNCTIONAND DO DAILY ACTIVITIES WHEN HE IS AWAKE. C/O NAUSEA, LOW APPETITE, AND FREQUENT ADAMES. PSYCH CLAIMS MEDS PRESCRIBED SHOULDN'T CAUSE SYMPTOMS.MEDICARE WELLNESS AND LABS6 MONTH F/U WITH LABS. PATIENT SAW NEUROLOGIST YESTERDAY AND STARTED ON TRINTELLIX Additional Source Comments Reason for Visit (unrecogniz ed section and content) Status Reason Specialty Diagnoses / Procedures Referre d By Contact Referred To Contact Closed Cardiology Diagnoses History of cardiac monitoring Sarah Gillette MD [address] [place] [address] Reason Comments Follow-up 6 week/ review echo Reason Comments Follow-up Denies Chest pain/pr essure/Sometimes SOB/Swelling/ no energy/ Status Reason Specialty Diagnoses / Procedures Referred By Contact Referred To Contact Pending Review Radiology Diagnoses ASD (atrial septal defect) Procedures MR Cardiac Morphology Without Contrast MR Cardiac Morphology With And Without Contrast with Velocity Flow Dorys Vergara MD [address] [place] [address] Status Reason Specialty Diagnoses / Procedures Referre d By Contact Referred To Contact Closed Cardiology Diagnoses Congenital heart disease in adult JEFFERSON (dyspnea on exertion) Procedures Echocardiogram complete Michael Segura MD [address] [address] Reason Comments Follow-up 6 MONTH FOLLOW UP WI TH LABS AND MED CHECK MOTHER STATES HE HAS BEEN TALKING TO HIMSELF MORE THAN USUAL IN THE LAST MONTH. RECENTLY GOT HIS EARS CLEANED OUT IN THE NOW CLINIC IN [place] HE FEELS BETTER HE STATES AND HE CAN HEAR BETTER. Specialty Diagnoses / Procedures Referred By Lois arreola Referred To Contact Primary Care Procedures Follow Up In Primary Care Roosevelt Seo PA-C [address] [place] [address] Referral ID Status Reason Start Date Expiration Date Visits Re quested Visits Authorized [id number] Closed 09/17/2022 03/16/2023 1 1 Reason Comments Gait issues Patient has abnormal gate and mother is looking to see if there is anything to help. Assessment & Plan Note - Michael Segura MD - 07/23/2018 8:35 AM ESTAssessment & Plan Note - Michael Segura MD - 09/03/2018 10:42 AM EST Miscellaneous Notes (unrecog nized section and content) Associated Problem(s): Congenital heart disease in adult No chest pain. Patient status post oxygen saturation testings documented nocturnal heart block see me in the past with normal 6-minute walk test he uses oxygen with nasal cannula evening at nights but not cannot keep the cannula on overnight. Mother reports O2 sat level is low at 66% 1 late afternoon patient not wearing oxygen. Patient is delirious and confused with low oxygen saturations. Mother asking about portable O2. JEFFERSON with exertion and decreased O2 sat at times. Limited exercise capacity over the last year or 2. Seen today with his mother. Has been through sleep lab evaluation reportedly 6-minute walk was unremarkable except for his O2 sat dropping. Over seems to have low O2 sat associated with weakness spells. No evidence of any arrhythmia or palpitations. EKG completely unremarkable. O2 sat 96% May need further pulmonary evaluation. BEBO eval. Trouble wearing the CPAP. Check echo. Check Chest xray. Review lab Thomson see back. Evaluate for estimate pulmonary hypertension.in this encounter Associated Problem(s): Congenital heart disease in adult Echo July 2018 reviewed. Associated Problem(s): Spells of decreased attentiveness Sees Neurology, Dr. Brenner. In October 2018. in this encounter (unrecognized sect ion and content) No Status Records FoundNo Status Records FoundNo Status Records FoundNo Status Records FoundNo Status Records FoundNo Status Records FoundNo Status Records FoundNo Status Records FoundNo Status Records FoundNo Status Records Found INFORMATION SOURCE (unrecogn ized section and content) DATE CREATED AUTHOR AUTHOR'S ORGANIZ ATION 09/01/2018 [facility] DATE CREATED AUTHOR AUTHOR'S ORGANIZ ATION 10/02/2018 [facility] DATE CREATED AUTHOR AUTHOR'S ORGANIZ ATION 04/13/2019 [facility] DATE CREATED AUTHOR AUTHOR'S ORGANIZ ATION 04/16/2022 [facility] DATE CREATED AUTHOR AUTHOR'S ORGANIZ ATION 08/20/2022 [facility] DATE CREATED AUTHOR AUTHOR'S ORGANIZ ATION 08/27/2022 [facility] DATE CREATED AUTHOR AUTHOR'S ORGANIZ ATION 03/10/2023 [facility] DATE CREATED AUTHOR AUTHOR'S ORGANIZ ATION 03/25/2023 [facility] DATE CREATED AUTHOR AUTHOR'S ORGANIZ ATION 06/21/2023 [facility] Teams (unrecognized sec tion and content) Baker Apprentice Relationship Specialty Start Date End Date Sarah Gillette MD [address] [place] [address] PCP - General Internal Medicine 06/25/18 Baker Apprentice Relationship Specialty Start Date End Date Sarah Gillette MD [address] [place] [address] PCP - General Internal Medicine 06/25/18 Baker Apprentice Relationship Specialty Start Date End Date Sarah Gillette MD [address] [place] [address] PCP - General Internal Medicine 06/25/18 FOR RECORDS PERTAINING TO PATIENTS WHO ARE OR HAVE BEEN ENROLLED IN A CHEMICAL DEPENDENCY/SUBSTANCEABUSE PROGRAM, SOME INFORMATION MAY BE OMITTED. This clinical summary was aggregated from multiple sources. Caution should be exercised in using it in the provision of clinical care. This summary normalizes information from multiple sources, and as a consequence, information in this document may materially change the coding, format and clinical context of patient data. In addition, data may be omitted in some cases. CLINICAL DECISIONS SHOULD BE BASED ON THE PRIMARY CLINICAL RECORDS. [facility]. provides no warranty or guarantee of the accuracy or completeness of information in this document.
== END | disposition home or self-care (01) ==
LOC: SL 12:06
PROVIDERS: PCP Physician Assistant Medical; Visit Provider Internal Medicine Critical Care Medicine
DX: Z00.00 Encounter for general adult medical examination without abnormal findings (principal)

== ENCOUNTER → 2024-08-16 | Outpatient (CLI) | payer MEDICARE, MEDICAID, SELFPAY ==
[2024-08-16 09:46] LABS: Mucous, Urine 0 SEEN /hpf (<or=2+); Red Blood Cells-Urine 0 SEEN /hpf (0-5)
[2024-08-16 12:13] LABS: Color, Urine Yellow (Yellow); Glucose, Dipstick Normal (Normal); Ketone-Dipstick Negative (Negative); Leukocyte Esterase-Dipstick Negative /ul (Negative); Nitrite-Dipstick Negative (Negative); Occult Blood-Urine Negative /ul (Negative); Protein-Dipstick 15 mg/dl (Negative); Specific Gravity, Urine 1.015 (1.002-1.030); Urine Bilirubin Dipstick Negative (Negative); Urine Clarity Clear (Clear); Urine Urobilinogen Normal (Normal)
[2024-08-16 12:26] LABS: Absolute Lymphocyte Count 1.54 X10^3/uL (0.83-4.51); Absolute Neutrophil Count 7.2 X10^3/uL (2.0-7.7); Basophil# 0.09 X10^3/uL; Basophil% 0.9 % (0-1); Eosinophil# 0.16 X10^3/uL; Eosinophils% 1.7 % (0-5); Hematocrit 39.9 % (40-54); Hemoglobin 12.8 g/dL (13.0-16.5); Lymphocyte # 1.54 X10^3/ul (0.83-4.51); Lymphocyte % 16.1 % (19-41); Mean Corp Hgb Conc 32.1 g/dL (32-36); Mean Corpuscular Hgb 27.1 pg (27.0-32.0); Mean Corpuscular Volume 84.5 fL (80-94); Mean Platelet Vol. 10.3 fl (6.2-12.0); Monocyte# 0.58 X10^3/uL; Monocyte% 6.1 % (0-10); NRBC Flagged by Analyzer 0 % (0-5); Neutrophil # 7.16 X10^3/uL (2.7-7.7); Neutrophil % 74.9 % (47-70); Platelet Count 244 K/mm3 (150-450); RBC Distribution Width CV 14.4 % (11.6-14.6); RBC Distribution Width SD 43.6 fl (35.1-43.9); Red Blood Count 4.72 M/mm3 (4.6-6.2); White Blood Count 9.6 K/mm3 (4.4-11.0)
[2024-08-16 12:45] LABS: Bacteria 1+ /hpf (None Seen); Squamous Epithelial Cells - UA 0-5 SEEN /hpf (0-5); White Blood Cells 0-5 SEEN /hpf (0-5)
[2024-08-16 13:03] LABS: ALB/GLOB Ratio 0.8 RATIO (0.9-2.4); AST(SGOT) 23 U/L (15-37); Alanine Aminotransfer ALT/SGPT 36 U/L (16-61); Albumin, Serum 3.4 g/dL (3.2-5.0); Alkaline Phosphatase 90 U/L (45-117); Anion Gap 8 (5-15); BUN 12 mg/dL (7-18); BUN/Creat Ratio 12.8 RATIO (10-20); Calcium,Total 8.9 mg/dL (8.5-10.1); Chloride 108 mmol/L (98-107); Creatinine, Serum 0.93 mg/dL (0.70-1.30); EST Glomerular Filtration Rate 94 mL/min (>60); Est Glom Filt Rate - Afr Amer 113 mL/min (>60); Globulin 4.2 g/dL (2.2-4.2); Glucose 99 mg/dL (74-106); Magnesium 2.2 mg/dL (1.6-2.6); Potassium 3.9 mmol/L (3.5-5.1); Protein, Total 7.6 g/dL (6.4-8.2); Sodium Level 139 mmol/L (136-145)
== END | disposition home or self-care (01) ==
PROVIDERS: PCP Physician Assistant Medical; Referring Provider Psychiatry & Neurology Neurology; Visit Provider Psychiatry & Neurology Neurology
DX: R26.9 Unspecified abnormalities of gait and mobility (principal); R45.1 Restlessness and agitation; R35.0 Frequency of micturition
CPT/HCPCS: 36415; 80053; 81001; 82140; 83735; 84443; 85025; 87086